=== PATIENT | female | born 1935 | race Caucasian/White ===

== ENCOUNTER 2017-02-04 12:50 | Inpatient (IN) ==
[2017-02-04] MEDS ORDERED: Sulfamethoxazole/Trimeth DS 1 EACH TABLET PO ONE (14:08)
[2017-02-04] MEDS ORDERED: *HR* Morphine 2 MG/ML SYRINGE IVP ONE (15:02)
[2017-02-04] MEDS ORDERED: Ondansetron 4 MG/2 ML VIAL IVP ONE (15:02)
--- NOTE | 2017-02-04 15:08 | Emergency Department Note ---
Disposition Clinical Impression: Abscess of skin or subcutaneous tissue Qualifiers: Site of cutaneous abscess: extremity Site of cutaneous abscess of extremity: lower extremity Laterality: right Qualified Code(s): L02.415 - Cutaneous abscess of right lower limb Disposition: Admitted As Inpatient Condition: Good Time of Disposition: 15:42 Skin/Abscess/FB HPI Chief complaint: ED Skin/Abscess/Foreign Body Stated complaint: Draining wound in groin Time Seen by Provider: 02/04/17 12:57 Source: patient, EMS Limitations: no limitations Nursing Notes Reviewed: Yes Vital Signs Reviewed: Yes HPI Narrative: Right leg pain. Has seen 2 weeks ago for similar. Evaluated that time was determined to be negative evaluation. Recommend follow-up with outpatient surgical provider. Was seen twice as an outpatient. No other issues. He came in today for progressive pain again. Abscess area in the right groin popped and had pus draining from it in transit by EMS. No other complaints or symptoms prior today except for pain in her right leg Pt Subjective Complaint: abscess/boil Onset (ago): week(s) Tetanus Up to Date: yes Location: RLE Severity scale (1-10): 6 Quality: aching Improves with: none Worsens with: none Context: none Associated symptoms: Reports: denies other symptoms Treatments prior to arrival: none Home Medications Medication Instructions Recorded Confirmed Aspirin [Adult Low Dose Aspirin EC] 81 mg PO DAILY 12/29/15 02/04/17 Atorvastatin Calcium [Lipitor] 20 mg PO DAILY 12/29/15 02/04/17 Cholecalciferol (Vitamin D3) 1,000 unit PO DAILY 12/29/15 02/04/17 [Vitamin D3] Doxazosin [Cardura] 4 mg PO DAILY 12/29/15 02/04/17 Loratadine [Claritin] 10 mg PO DAILY 12/29/15 02/04/17 Amlodipine [Norvasc] 5 mg PO DAILY 02/04/17 02/04/17 Ascorbic Acid [Vitamin C] 250 mg PO DAILY 02/04/17 02/04/17 Cyanocobalamin (Vitamin B-12) 1,000 mcg PO DAILY 02/04/17 02/04/17 [Vitamin B12] Ferrous Sulfate [Ferrous Sulfate] 325 mg PO DAILY 02/04/17 02/04/17 Previous Rx's Medication Instructions Recorded Omeprazole [PriLOSEC] 40 mg PO BID #60 capsule 04/13/16 Allergies Allergy/AdvReac Type Severity Reaction Status Date / Time Penicillins Allergy swelling,vo Verified 04/12/16 10:04 miting clopidogrel [From Plavix] AdvReac nervousness Verified 04/12/16 10:04 ,itching All systems ED: reviewed and negative except as stated. Constitutional: Denies: fever, chills Cardiovascular: Denies: chest pain, palpitations, dyspnea on exertion Respiratory: Denies: dyspnea, wheezes Gastrointestinal: Denies: nausea, vomiting, diarrhea Musculoskeletal: Denies: back pain, neck pain Past Medical History - Past Medical History Attestation: Yes The following information was validated with the patient. 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 Absent: tenderness, distention, guarding, rebound, rigidity, Manuel's sign, Rovsing's sign, tenderness at McBurney's Point - Extremities Exam Extremities exam: Present: normal inspection, full ROM - Neurological Exam Neurological exam: Present: alert, oriented X3, CN II-XII intact, normal gait - Psychiatric Psychiatric exam: Present: normal affect, normal mood - Skin Skin exam: Present: warm, dry, intact, normal color Course Course Narrative: Patient seen and examined at the time of arrival. See history of present illness. Patient presented here today for evaluation of right hip pain. She been seen 2 weeks ago for similar. Evaluated Mr. Webb is a to outpatient evaluations by her operative physician during that time. Vital signs are stable in presentation she is afebrile. Patient was transported by EMS for evaluation hip pain. Patient had area on the right groin start to CPAP plus in- transit. Patient has what appears to be an abscess formation inguinal area. Physical exam is otherwise benign. Pulses are intact in the distal extremity capillary refill is normal. Patient has normal sensation. There is no red signs of cellulitis or warmth at this point. Patient bedside ultrasound performed by myself showing large fluid accumulation in the inguinal and underneath the surgical site line of the right thigh. The femoral popliteal bypass appears to be intact with good patency to the vessel itself at this time. Labs were ordered at this point CBC and chemistry along with wound culture. Consultation was placed to the operative physician Dr. Yancey. Disposition pending his evaluation treatment course. - Reevaluation(s) Reevaluation #1: Patient was discussed with Dr. Barker. We reviewed and discussed the presentation symptoms medical history and evaluations. He advised to admit the patient to his service and order vancomycin. Single dose of IV pain medication nausea medication fluids to be given on here as well as first dose of IV vancomycin. Admission process to be completed at this point. Patient is stable resting comfortably in the bed. Informed patient of the projected plan at this time she is comfortable with this treatment course. Patient has no other concerns or complaints at this time we will continue monitoring in the emergency room until admission is completed. No acute signs of vascular compromise the right lower extremity. Area and presentation seem to be consistent with postsurgical related abscess formation Time: 15:42 Vital Signs Temperature 98 F 02/04/17 12:55 Pulse Rate 100 02/04/17 12:55 Respiratory Rate 20 02/04/17 12:55 Blood Pressure 137/59 02/04/17 12:55 O2 Sat by Pulse Oximetry 98 02/04/17 12:55 Temperature 98.2 F 02/04/17 18:39 Pulse Rate 89 02/04/17 18:39 Respiratory Rate 18 02/04/17 18:39 Blood Pressure 127/67 02/04/17 18:39 O2 Sat by Pulse Oximetry 93 02/04/17 18:39 Oxygen Delivery Oxygen Delivery Room Air Skin/Abscess/Foreign Body - MDM Narrative Medical decision making narrative: Right inguinal abscess, postsurgical complication - Medical Records Medical records reviewed: Yes I reviewed the patient's medical records. - Lab Data Lab results reviewed: Yes I reviewed the patient's lab results. Result diagrams: 02/04/17 14:56 02/04/17 14:56 Lab Results 02/04/17 02/04/17 Range/Units 14:56 14:56 WBC 14.9 H (4.3-11.1) K/mcL RBC 4.03 (3.82-4.97) M/mcL Hgb 9.4 L (11.5-15.4) g/dL Hct 30.9 L (35.3-44.9) % MCV 76.7 L (83.0-100.0) fL MCH 23.3 L (28.0-33.3) pg MCHC 30.4 L (31.6-35.5) g/dL RDW 21.0 H (11.5-14.5) % Plt Count 320 (140-400) K/mcL MPV 11.1 (9.4-12.4) fL Seg Neutrophils % 92.0 % Lymphocytes % 6.0 % Monocytes % 2.0 % Neutrophils # 13.7 H (1.6-8.9) K/mcL Lymphocytes # 0.9 (0.6-4.6) K/mcL Monocytes # 0.3 (0.0-1.3) K/mcL Platelet Estimate Normal (Normal) Sodium 137 (136-145) mEq/L Potassium 2.9 L (3.5-4.5) mEq/L Chloride 103 (98-109) mEq/L Carbon Dioxide 26 (19-29) mEq/L BUN 14 (7-20) mg/dL Creatinine 0.69 (0.57-1.11) mg/dL Est GFR ( Amer) > 60 (> 60) Est GFR (Non-Af Amer) > 60 (> 60) BUN/Creatinine Ratio 20 (6-26) Glucose 146 H (70-99) mg/dL Calculated Osmolality 287 (280-300) Calcium 8.1 L (8.6-10.8) mg/dL Attestation Statement - Attestation Attestation: I examined this patient and my medical decision-making was reviewed with the IMPROVEMENT COORDINATOR/PA/Advanced Practice Nurse/Resident Physician. I agree with the documented findings, disposition and treatment plan as described except to the extent set forth below. 81-year-old female presents ED because of pain of her right groin. She has had symptoms for the past several weeks that worsened over the past couple days. Today she had abrupt onset of drainage from the right leg. No associated fever. No flank or back pain. She underwent revascularization procedure per Dr. Barker and December of last year. She just had CT of abdomen with run off the showed adequate flow to the lower leg. Obese female who is awake alert and interactive. No apparent distress. Abdomen soft nondistended nontender. Chest clear to auscultation bilaterally. Flanks nontender. Right lower extremity was weak and pulse but good perfusion of the toes. She has active purulent drainage from the right groin. No overlying erythema. Bedside ultrasound was used to evaluate the fluid and this seemed to extend down to the medial thigh along the track of her previous vascular procedure. The drainage was sent for culture. She will IV vancomycin. She will be admitted to Dr. Barker's service for IV antibiotics and consideration of surgical exploration.
[2017-02-04 15:09] LABS: Hematocrit 30.9 % (35.3-44.9); Hemoglobin 9.4 g/dL (11.5-15.4); Mean Corpuscular HGB Conc 30.4 g/dL (31.6-35.5); Mean Corpuscular Hemoglobin 23.3 pg (28.0-33.3); Mean Corpuscular Volume 76.7 fL (83.0-100.0); Mean Platelet Volume 11.1 fL (9.4-12.4); Platelet Count 320 K/mcL (140-400); Red Blood Count 4.03 M/mcL (3.82-4.97)
[2017-02-04 15:23] LABS: BUN/Creatinine Ratio 20 (6-26); Blood Urea Nitrogen 14 mg/dL (7-20); Calcium 8.1 mg/dL (8.6-10.8); Carbon Dioxide 26 mEq/L (19-29); Chloride 103 mEq/L (98-109); Glucose 146 mg/dL (70-99); Osmolality,Calculated 287 (280-300); Potassium 2.9 mEq/L (3.5-4.5); Sodium 137 mEq/L (136-145); eGFR For African Americans > 60 (> 60); eGFR For Non-African Americans > 60 (> 60)
[2017-02-04 15:42] LABS: Lymphocytes # 0.9 K/mcL (0.6-4.6); Monocytes # 0.3 K/mcL (0.0-1.3); Neutrophils # 13.7 K/mcL (1.6-8.9)
[2017-02-04 15:43] LABS: Platelet Estimate Normal (Normal)
[2017-02-04] MEDS ORDERED: Vancomycin 1,250 MG in D5% in Water 250 ML IVPB ONE (16:00)
[2017-02-04] MEDS ORDERED: Ondansetron 4 MG/2 ML VIAL IVP PRN (16:30)
[2017-02-04] MEDS ORDERED: Naloxone 0.4 MG/ML INJ IVP PRN (16:30)
[2017-02-04] MEDS ORDERED: *HR* HYDROmorphone (PF) 1 MG/ML SYRINGE IVP PRN (16:37)
[2017-02-04] MEDS ORDERED: *HR* OxyCODONE/APAP 5/325 TABLET PO PRN (16:38)
[2017-02-04] MEDS ORDERED: Acetaminophen 325 MG TABLET PO PRN (16:38)
--- NOTE | 2017-02-04 16:50 | Vascular/Endovascular H&P ---
<Aparna Alvarez - Last Filed: 02/04/17 16:44> Date of Encounter: 02/04/17 Time of Encounter: 16:00 Assessment and Plan (1) Abscess of skin or subcutaneous tissue Current Visit: Yes Status: Acute IV antibiotics- Vancomycin Wound care- iodoform packing CT scan of RLE Supportive care/pain control Cardiac diet, NPO after midnight Resume home meds Dr. Barker to evaluate and review CT to determine if surgical intervention is warranted Qualifiers: Site of cutaneous abscess: extremity Site of cutaneous abscess of extremity : lower extremity Laterality: right Qualified Code(s): L02.415 - Cutaneous abscess of right lower limb (2) Peripheral vascular disease Current Visit: No Status: Chronic (3) HTN (hypertension) Current Visit: No Status: Chronic Resume home medication regiment Will monitor and adjust as necessary Qualifiers: Hypertension type: essential hypertension Qualified Code(s): I10 - Essential (primary) hypertension (4) GERD (gastroesophageal reflux disease) Current Visit: Yes Status: Chronic PPI therapy daily Qualifiers: Esophagitis presence: esophagitis presence not specified Qualified Code(s) : K21.9 - Gastro-esophageal reflux disease without esophagitis (5) DVT prophylaxis Current Visit: Yes Status: Acute heparin 5,000 units SQ twice daily for DVT prophylaxis History of Present Illness Chief complaint: Right groin pain HPI: Ms. Worley is a 81 year old female with a past medical history significant for carotid stenosis, HTN, Hyperlipidemia, GERD, PAD, osteoporosis, osteoarthritis, seasonal allergies. She presented to the ED today with a 3 weak history of right groin pain and swelling. She states that she is 1 year out from a right fem-pop bypass with Dr. Barker (12/29/15). She states that she had done well up until 3 weeks ago when she developed sudden onset of right groin pain and swelling. She states that the symptoms have progressively worsened and that she did see Dr. Barker on 01/25/17 for a routine follow-up. Her 1 year follow- up imaging was reviewed and no acute intervention was warranted. The patient reports that when she got up this morning, the right groin opened up and she drained copious amounts of purulent drainage without odor. She has continued to drain a large amount of purulent drainage while in the ED. She states that her pain is much better since decompression. She denies any fevers or chills. Denies any difficulty with ambulation. She does admit to loss of appetite. Denies any shortness of breath or chest pains. Past Med Surg Social Fam HX - Past Medical History Source: patient, old records reviewed Medical history: cancer, GERD, hyperlipidemia, hypertension, osteoporosis, peripheral artery disease, other (seasonal allergies, carotid stenosis, PAD, osteoarthritis) Psychiatric history: no psych history - Past Surgical History Surgical History: carotid endarterectomy (right 2009), cholecystectomy, other ( EGD), LE vascular intervention (RLE fem-pop bypass in 2002 and 2015) - Social History Smoking Status: Former smoker Smokeless Tobacco Status: No Alcohol use: none Drug use: none Current living situation: Home - Independent Activity Level: Independent ambulation - Family History Mother Living Status: Hx Family Cardiac Disorders: Yes Hx Family Respiratory Disorders: No Hx Family Cancer: Yes (Colon and lung) Hx Family GI Disorders: No Hx Family Endocrine Disorder: Yes (Brother and sister) Hx Family Neuromuscular Disorders: No Hx Family Neurologic Disorders: No Hx Family HEENT Disorders: No Hx Family Autoimmune Disorders: No Daughter Hx Family Cancer: Yes (daughter diagnosed with colon cancer at 53.) Medications and Allergies Aspirin [Adult Low Dose Aspirin EC] 81 mg PO DAILY 12/29/15 [History] Atorvastatin Calcium [Lipitor] 20 mg PO DAILY 12/29/15 [History] Cholecalciferol (Vitamin D3) [Vitamin D3] 1,000 unit PO DAILY 12/29/15 [History] Doxazosin [Cardura] 4 mg PO DAILY 12/29/15 [History] Loratadine [Claritin] 10 mg PO DAILY 12/29/15 [History] Omeprazole [PriLOSEC] 40 mg PO BID #60 capsule 04/13/16 [Rx] Amlodipine [Norvasc] 5 mg PO DAILY 02/04/17 [History] Ascorbic Acid [Vitamin C] 250 mg PO DAILY 02/04/17 [History] Cyanocobalamin (Vitamin B-12) [Vitamin B12] 1,000 mcg PO DAILY 02/04/17 [History ] Ferrous Sulfate [Ferrous Sulfate] 325 mg PO DAILY 02/04/17 [History] Allergies Penicillins Allergy (Verified 04/12/16 10:04) swelling,vomiting clopidogrel [From Plavix] Adverse Reaction (Verified 04/12/16 10:04) nervousness,itching All Systems Review: A 10-system review of systems was performed and is negative for pertinent findings except as documented above in the HPI. Exam General: Present: Conversant, No Apparent Distress, Well developed, Well nourished HEENT: Present: Atraumatic, Normocephaly, Trachea midline, Other (poor dentition ) Cardiac: Present: Reg Rate and Rhythm, Normal S1 and S2 Lungs: Present: Normal Breath Sounds, No Wheeze, Rales, Rhonchi Neuro: Present: Alert and responsive, No focal deficits noted Abdomen: Present: Soft, Non-tender Vascular: Present: Normal capillary refill, Pulse, normal, Other (right groin with open wound noted with copious amounts of purulent drainage without odor, no surrounding erythema or induration noted) Skin: Present: No rashes noted on visualized skin Results 02/04/17 14:56 02/04/17 14:56 - Imaging / Other Tests Other Results: CT ordered - Attending Attestation I examined this patient and my medical decision-making was reviewed with the PRINCIPAL EXAMINER/PA/Advanced Practice Nurse/Resident Physician. I agree with the documented findings, disposition and treatment plan as described except to the extent set forth below. <MjBrandon T - Last Filed: 02/05/17 06:49> Date of Encounter: 02/05/17 History of Present Illness HPI: Ms. Worley is a 81 year old female All Systems Review: A 10-system review of systems was performed and is negative for pertinent findings except as documented above in the HPI. Exam Vital Signs, Last 4 Hours Temp Pulse Resp BP Pulse Ox 02/05/17 03:54 97.6 F 86 20 148/71 94 Results 02/05/17 05:32 02/05/17 05:32 Lab Results, Last 24 hours 02/05/17 02/05/17 05:32 05:32 WBC 7.7 Hgb 8.8 L Hct 29.5 L Plt Count 304 Sodium 139 Potassium 3.0 L Chloride 105 Carbon Dioxide 26 BUN 12 Creatinine 0.69 Glucose 120 H Calcium 7.9 L - Attending Attestation The patient is one alta out from femoral endarterectomy, bovine patch angioplasty and right femoral-tibial in-situ bypass. Now with and abcess of the right groin not detected on follow-up 9 days ago in the office. Recent CTA failed to demonstrate abcess. Plan Vancomycin and clinical follow-up. Graft appears patent Brandon Barker MD FACS
[2017-02-04] MEDS: 0.9 % Sodium Chloride 1,000 ML IVC SCH (18:40)
[2017-02-04] MEDS: *HR* Heparin 5,000 UNIT/ML VIAL SQ SCH (18:41)
[2017-02-05] MEDS: Vancomycin 1,250 MG in D5% in Water 250 ML IVPB SCH ×2 (05:40→17:48)
[2017-02-05] MEDS: *HR* Heparin 5,000 UNIT/ML VIAL SQ SCH ×2 (05:41→17:48)
[2017-02-05 06:14] LABS: Basophils # 0.1 K/mcL (0.0-0.2); Basophils % 0.7 %; Eosinophils # 0.2 K/mcL (0.0-0.6); Eosinophils % 2.9 %; Hematocrit 29.5 % (35.3-44.9); Hemoglobin 8.8 g/dL (11.5-15.4); Immature Granulocytes % 1.3 % (0-4); Lymphocytes # 0.8 K/mcL (0.6-4.6); Lymphocytes % 9.8 %; Mean Corpuscular HGB Conc 29.8 g/dL (31.6-35.5); Mean Corpuscular Hemoglobin 23.1 pg (28.0-33.3); Mean Corpuscular Volume 77.4 fL (83.0-100.0); Mean Platelet Volume 11.1 fL (9.4-12.4); Monocytes # 0.7 K/mcL (0.0-1.3); Monocytes % 8.7 %; Neutrophils # 5.9 K/mcL (1.6-8.9); Platelet Count 304 K/mcL (140-400); Red Blood Count 3.81 M/mcL (3.82-4.97); Red Cell Distribution Width 21.2 % (11.5-14.5); Segmented Neutrophils % 76.6 %
[2017-02-05 06:31] LABS: BUN/Creatinine Ratio 17 (6-26); Blood Urea Nitrogen 12 mg/dL (7-20); Calcium 7.9 mg/dL (8.6-10.8); Carbon Dioxide 26 mEq/L (19-29); Chloride 105 mEq/L (98-109); Glucose 120 mg/dL (70-99); Osmolality,Calculated 289 (280-300); Sodium 139 mEq/L (136-145); eGFR For African Americans > 60 (> 60); eGFR For Non-African Americans > 60 (> 60)
[2017-02-05] MEDS ORDERED: amLODIPine 5 MG TABLET PO SCH (09:00)
[2017-02-05] MEDS ORDERED: Aspirin 81 MG TAB.CHEW PO SCH (09:00)
[2017-02-05] MEDS ORDERED: Potassium Chloride 40 MEQ, Lidocaine 1% 2 ML in D5% in Water 500 ML IVPB ONE (10:40)
[2017-02-05] MEDS: 0.9 % Sodium Chloride 1,000 ML IVC SCH (11:50)
--- NOTE | 2017-02-05 18:01 | Anesthesia Evaluation PreOp ---
Date of Encounter: 02/05/17 Time of Encounter: 17:59 - Past History Planned Operation: Remove Infected Right Fem-Pop Graft Cardiac History: HTN, Hyperlipidemia, Other (PVD) Pulmonary History: Former smoker (quit 40 years ago), COPD WHITE SPOOLER History: Denies Any Significant HX Other Medical History: Diabetes Type II, GERD Anesthesia History: No Prior Anesthetic Complications, Past Anesthesia (CEA) Alcohol Use: none Drug use: none Medications and Allergies Aspirin [Adult Low Dose Aspirin EC] 81 mg PO DAILY 12/29/15 [History] Atorvastatin Calcium [Lipitor] 20 mg PO DAILY 12/29/15 [History] Cholecalciferol (Vitamin D3) [Vitamin D3] 1,000 unit PO DAILY 12/29/15 [History] Doxazosin [Cardura] 4 mg PO DAILY 12/29/15 [History] Loratadine [Claritin] 10 mg PO DAILY 12/29/15 [History] Omeprazole [PriLOSEC] 40 mg PO BID #60 capsule 04/13/16 [Rx] Amlodipine [Norvasc] 5 mg PO DAILY 02/04/17 [History] Ascorbic Acid [Vitamin C] 250 mg PO DAILY 02/04/17 [History] Cyanocobalamin (Vitamin B-12) [Vitamin B12] 1,000 mcg PO DAILY 02/04/17 [History ] Ferrous Sulfate [Ferrous Sulfate] 325 mg PO DAILY 02/04/17 [History] Allergies Penicillins Allergy (Verified 04/12/16 10:04) swelling,vomiting clopidogrel [From Plavix] Adverse Reaction (Verified 04/12/16 10:04) nervousness,itching - Meds/Allergy Pre-op Review Medications Reviewed: Yes Allergies Reviewed: Yes Beta Blockers on Current Med List: No Anesthesia Results - Labs 02/05/17 05:32 02/05/17 05:32 - Imaging EKG: report reviewed (04/12/2016 ST, marked LAD, LBBB) Additional studies: 12/06/2015 Stress EF 58% perfusion imaging was negative for ischemia or infarct Anesthesia Exam Vital Signs/O2 Sat/Glucose, Most Recent Temp Pulse Resp BP Pulse Ox 97.9 F 80 18 138/72 97 02/05/17 11:45 02/05/17 11:45 02/05/17 11:45 02/05/17 11:45 02/05/17 11:45 Blood Glucose* 104 Height: 5'/1.52 Weight: 203 lbs/92.261 kg NPO (# of Hours): 8 Pain Scale: 0 Pain Scale Used: Numeric (1 - 10) - HEENT Pupil (Motor): EOMI Mallampati: II Teeth: Poor dentition (3 decayed lower front teeth) Oral Opening: Greater than 3 - WHITE SPOOLER LOC: Oriented WHITE SPOOLER Motor: Normal RUE, Normal LUE, Normal RLE, Normal LLE, Normal Face WHITE SPOOLER Sensory: Normal: RUE, LUE, RLE, LLE, Face - Cardiac Rhythm: Regular Murmur: None - Pulmonary Breath Sounds: bilateral Clear Respiratory Effort: Symmetrical Anesthesia Assess/Plan ASA Score: 3 Modified [place] Scale for Level of Consciousness: Cooperative, oriented, and tranquil Anesthetic Plan: General Monitoring Plan: Standard Monitors Recovery Plan: PACU
[2017-02-05] MEDS ORDERED: *HR* FentaNYL (PF) 100 MCG/2 ML VIAL ONE (18:35)
[2017-02-05] MEDS ORDERED: *HR* Propofol 200 MG/20 ML VIAL IVP ONE (18:35)
[2017-02-05] MEDS ORDERED: *HR* Rocuronium Bromide 50 MG/5 ML VIAL ONE (18:37)
[2017-02-05] MEDS ORDERED: Lidocaine -MPF 2% 2 ML VIAL ONE (18:37)
[2017-02-05] MEDS ORDERED: Lidocaine -MPF 4% 5 ML AMPUL ONE (18:37)
[2017-02-05] MEDS ORDERED: Heparin 1,000 UNITS/500 mL NS 500 ML ONE (18:56)
[2017-02-05] MEDS ORDERED: *HR* Succinylcholine 200 MG/10 ML VIAL IVP ONE (19:10)
[2017-02-05] MEDS ORDERED: *HR* Phenylephrine 10 MG/ML VIAL ONE (19:27)
[2017-02-05] MEDS ORDERED: Ondansetron 4 MG/2 ML VIAL ONE (19:51)
[2017-02-05] MEDS ORDERED: Dexamethasone 4 MG/ML VIAL ONE (19:51)
--- NOTE | 2017-02-05 20:06 | Operative Note ---
Date of procedure: 02/05/17 Pre-op diagnosis: PTFE graft infection (defunctionalized) Post-op diagnosis: same Procedure: #1 incision and drainage of popliteal abscess #2 removal of PTFE femoral- popliteal bypass graft Anesthesia: SILVANO Surgeon: Brandon Barker Estimated blood loss (cc): 25 Specimen: Cultures and PTFE graft (gross only) Condition: stable Disposition: PACU Procedure in Detail: After informed consent the patient was taken to the major operating suite placed in the supine position given adequate general endotracheal anesthesia. The right leg was circumferentially prepped and draped in sterile fashion utilizing Betadine solution and draping techniques. Timeout was taken patient was identified the lateralizing bushra was identified. I opened the previous. Geniculate incision and angled my dissection anteriorly to avoid the femoral tibial bypass graft which is patent. I dissected down the level popliteal fossa and entered a large abscess cavity. Abscess cavity was completely drained. I had assumed that the PTFE graft was floating and it was with no connection to soft tissue. I was also surprised to find that the anastomosis was also deteriorated and node dissection was necessary on the occluded popliteal artery. No stitches were necessary on the occluded popliteal artery. The entire PTFE segment was removed. I then obtained to cultures 1 for anaerobic and 1 for aerobic bacteria. I then irrigated with copious amounts of antibiotic containing solution. The thigh tract and popliteal abscess was packed with iodoform. I then removed the iodoform from the groin wound. This was irrigated with antibiotic solution and repacked with iodoform. Patient tolerated the procedure very well is transferred to recovery in stable condition
[2017-02-05] MEDS ORDERED: Albuterol 2.5 MG/3 ML NEBULIZER ONE (20:20)
[2017-02-05] MEDS ORDERED: Albuterol 2.5 MG/3 ML NEBULIZER IH ONE (20:20)
--- NOTE | 2017-02-05 20:34 | Anesthesia Evaluation Post Op ---
Date of Encounter: 02/05/17 Time of Encounter: 20:34 - Vital Signs Vital Signs: Vital Signs/O2 Sat, Most Current Temp Pulse Resp BP Pulse Ox 97.7 F 96 20 157/65 100 02/05/17 20:05 02/05/17 20:25 02/05/17 20:25 02/05/17 20:25 02/05/17 20:25 - Lungs Lungs: Clear Ascult./Percussion - Airway Airway: Non-obstructed - Cardiovascular Regular Rate - Mental Status Mental Status: Alert & Oriented, Answers Appropriately - Pain Pain Scale: 0 Pain Scale used: Numeric (1 - 10) - Nausea Vomiting Nausea Vomiting: Not Present - Hydration Hydration: NPO, Has not voided - Discharge PostOp Status: Transfer Patient to floor
[2017-02-05] MEDS ORDERED: *HR* OxyCODONE/APAP 5/325 TABLET PO PRN (21:20)
[2017-02-05] MEDS ORDERED: 0.9 % Sodium Chloride 1,000 ML IVC SCH (21:20)
[2017-02-05] MEDS ORDERED: *HR* HYDROmorphone (PF) 1 MG/ML SYRINGE IVP PRN (21:20)
[2017-02-05] MEDS ORDERED: Naloxone 0.4 MG/ML INJ IVP PRN (21:20)
[2017-02-05] MEDS ORDERED: Acetaminophen 325 MG TABLET PO PRN (21:20)
[2017-02-05] MEDS ORDERED: Ondansetron 4 MG/2 ML VIAL IVP PRN (21:20)
[2017-02-06] MEDS: *HR* Heparin 5,000 UNIT/ML VIAL SQ SCH ×2 (05:29→17:03)
[2017-02-06] MEDS: Vancomycin 1,250 MG in D5% in Water 250 ML IVPB SCH ×2 (05:29→17:03)
[2017-02-06 06:23] LABS: BUN/Creatinine Ratio 14 (6-26); Blood Urea Nitrogen 11 mg/dL (7-20); Calcium 7.9 mg/dL (8.6-10.8); Carbon Dioxide 25 mEq/L (19-29); Chloride 105 mEq/L (98-109); Glucose 217 mg/dL (70-99); Osmolality,Calculated 292 (280-300); Sodium 138 mEq/L (136-145); eGFR For African Americans > 60 (> 60); eGFR For Non-African Americans > 60 (> 60)
[2017-02-06] MEDS: amLODIPine 5 MG TABLET PO SCH (10:16)
[2017-02-06] MEDS: Aspirin 81 MG TAB.CHEW PO SCH (10:16)
--- NOTE | 2017-02-06 13:20 | Vascular/[facility] Progress Note ---
Date of Encounter: 02/06/17 Time of Encounter: 13:00 - Assessment and plan (1) Abscess of skin or subcutaneous tissue Current Visit: Yes Status: Acute POD #1 incision and drainage of popliteal abscess and removal of PTFE femoral- popliteal bypass graft with Dr. Barker IV antibiotics- Vancomycin Wound care- iodoform packing daily Supportive care/pain control Cardiac diet Continue home meds Increase activity as tolerated Discussed discharge planning in need of home health care when ready for discharge (daily dressing changes) The patient is seen and evaluated on morning rounds. Iodoform packing as directed. Continue Eric Barker MD FACS Qualifiers: Site of cutaneous abscess: extremity Site of cutaneous abscess of extremity : lower extremity Laterality: right Qualified Code(s): L02.415 - Cutaneous abscess of right lower limb (2) Peripheral vascular disease Current Visit: No Status: Chronic (3) HTN (hypertension) Current Visit: No Status: Chronic Resume home medication regimen add Metoprolol prn Will monitor and adjust as necessary Qualifiers: Hypertension type: essential hypertension Qualified Code(s): I10 - Essential (primary) hypertension (4) GERD (gastroesophageal reflux disease) Current Visit: Yes Status: Chronic PPI therapy daily Qualifiers: Esophagitis presence: esophagitis presence not specified Qualified Code(s) : K21.9 - Gastro-esophageal reflux disease without esophagitis (5) DVT prophylaxis Current Visit: Yes Status: Acute heparin 5,000 units SQ twice daily for DVT prophylaxis - Subjective Procedure(s) Performed: #1 incision and drainage of popliteal abscess #2 removal of PTFE femoral- popliteal bypass graft Interval history: 81-year-old female who is status post #1 incision and drainage of popliteal abscess #2 removal of PTFE femoral-popliteal bypass graft with Dr. Barker. She states that she feels great today. She is tolerating a diet without nausea or vomiting. Her appetite has improved. She denies any fevers or chills. Vital Signs, Last 4 Hours Temp Pulse Resp BP Pulse Ox 02/06/17 10:41 98.2 F 90 17 162/76 96 - Physical Examination General: Present: Conversant, No Apparent Distress, Well developed, Well nourished HEENT: Present: Atraumatic, Normocephaly, Trachea midline, Pupils equal Cardiac: Present: Reg Rate and Rhythm, Normal S1 and S2 Lungs: Present: Normal Breath Sounds, No Wheeze, Rales, Rhonchi Neuro: Present: Alert and responsive, No focal deficits noted, Cranial nerves grossly intact Vascular: Present: Normal capillary refill, Pulse, normal, Surgical incisions ( Moderate amount of serosanguineous drainage noted from right groin and medial thigh) Abdomen: Present: Soft, Non-tender Skin: Present: No rashes noted on visualized skin Results 02/05/17 05:32 02/06/17 05:21 Lab Results, Last 24 hours 02/06/17 05:21 Sodium 138 Potassium 4.0 D Chloride 105 Carbon Dioxide 25 BUN 11 Creatinine 0.77 Glucose 217 H Calcium 7.9 L Consult Discharge Plan - Plan Referrals: Tracy Blackwell MD [Primary Care Provider] -
[2017-02-06] MEDS: *HR* Metoprolol 5 MG/5 ML VIAL IVP PRN (14:42)
[2017-02-07] MEDS: *HR* Heparin 5,000 UNIT/ML VIAL SQ SCH ×2 (06:28→17:49)
[2017-02-07] MEDS: Aspirin 81 MG TAB.CHEW PO SCH (08:31)
[2017-02-07] MEDS: amLODIPine 5 MG TABLET PO SCH (08:31)
--- NOTE | 2017-02-07 13:57 | Vascular/Endovas Progress Note ---
Date of Encounter: 02/07/17 Time of Encounter: 13:30 - Assessment and plan (1) Abscess of skin or subcutaneous tissue Current Visit: Yes Status: Acute POD #1 incision and drainage of popliteal abscess and removal of PTFE femoral- popliteal bypass graft with Dr. Barker IV antibiotics- Vancomycin Wound care- iodoform packing daily Supportive care/pain control Cardiac diet Continue home meds Increase activity as tolerated Discussed discharge planning in need of home health care when ready for discharge (daily dressing changes) The patient is seen and evaluated on morning rounds. Iodoform packing as directed. Continue Eric Barker MD FACS 02/07/2017. The patient is doing well on postoperative day 2. We will continue vancomycin and wound packing until the drainage subsides. Overall she feels much better and has very little pain in her leg. Qualifiers: Site of cutaneous abscess: extremity Site of cutaneous abscess of extremity : lower extremity Laterality: right Qualified Code(s): L02.415 - Cutaneous abscess of right lower limb (2) Peripheral vascular disease Current Visit: No Status: Chronic (3) HTN (hypertension) Current Visit: No Status: Chronic Resume home medication regimen add Metoprolol prn Will monitor and adjust as necessary Qualifiers: Hypertension type: essential hypertension Qualified Code(s): I10 - Essential (primary) hypertension (4) GERD (gastroesophageal reflux disease) Current Visit: Yes Status: Chronic PPI therapy daily Qualifiers: Esophagitis presence: esophagitis presence not specified Qualified Code(s) : K21.9 - Gastro-esophageal reflux disease without esophagitis (5) DVT prophylaxis Current Visit: Yes Status: Acute heparin 5,000 units SQ twice daily for DVT prophylaxis - Subjective Interval history: 81-year-old female who is status post #1 incision and drainage of popliteal abscess #2 removal of PTFE femoral-popliteal bypass graft with Dr. Barker. She states that she feels great today. She is tolerating a diet without nausea or vomiting. Her appetite has improved. She denies any fevers or chills. 02/07/2017. The patient is postoperative day 2 from incision and drainage of popliteal abscess as well as removal of PTFE infected graft. The graft was first placed 14 years ago. She has a functioning femoral tibial in situ bypass graft. Today she is afebrile and is having much less leg pain. She continues to have drainage particular from the proximal incision. We will continue to treat her with vancomycin and wound packing until stable and then transitioned to negative pressure wound therapy. Continue vancomycin Vital Signs, Last 4 Hours Temp Pulse Resp BP Pulse Ox 02/07/17 10:26 98.0 F 84 17 150/75 95 - Physical Examination General: Present: Well developed, Well nourished Cardiac: Present: Reg Rate and Rhythm, No Murmur Lungs: Present: Normal Breath Sounds, No Wheeze, Rales, Rhonchi Neuro: Present: Alert and responsive, No focal deficits noted Vascular: Present: Pulse, normal (Right lower extremity and pulse is present by Doppler) Results 02/05/17 05:32 02/06/17 05:21 Consult Discharge Plan - Plan Referrals: Tracy Blackwell MD [Primary Care Provider] -
[2017-02-07] MEDS ORDERED: Aminoglycoside Consult 1 EACH MC ONE (14:14)
[2017-02-07] MEDS ORDERED: Vancomycin 1,250 MG in D5% in Water 250 ML IVPB SCH ×2 (15:00→17:00)
[2017-02-07] MEDS ORDERED: WATER IVPB SCH (18:00)
[2017-02-07] MEDS ORDERED: NAFCILLIN IVPB SCH (18:00)
[2017-02-07] MEDS ORDERED: D5 IVPB SCH (18:00)
[2017-02-08] MEDS: *HR* Heparin 5,000 UNIT/ML VIAL SQ SCH (05:48)
[2017-02-08] MEDS: Aspirin 81 MG TAB.CHEW PO SCH (08:21)
[2017-02-08] MEDS: amLODIPine 5 MG TABLET PO SCH (08:21)
--- NOTE | 2017-02-08 11:46 | Discharge Summary ---
<Aparna Alvarez - Last Filed: 02/08/17 11:44> Date of Encounter: 02/08/17 Time of Encounter: 11:30 - Discharge Diagnosis (1) Abscess of skin or subcutaneous tissue Priority: Primary Status: Acute Qualifiers: Site of cutaneous abscess: extremity Site of cutaneous abscess of extremity : lower extremity Laterality: right Qualified Code(s): L02.415 - Cutaneous abscess of right lower limb (2) Peripheral vascular disease Priority: Secondary Status: Chronic (3) HTN (hypertension) Priority: Secondary Status: Chronic Qualifiers: Hypertension type: essential hypertension Qualified Code(s): I10 - Essential (primary) hypertension (4) GERD (gastroesophageal reflux disease) Priority: Secondary Status: Chronic Qualifiers: Esophagitis presence: esophagitis presence not specified Qualified Code(s) : K21.9 - Gastro-esophageal reflux disease without esophagitis - Discharge Medications Prescriptions: OxyCODONE/APAP 5/325 [Percocet 5/325 MG] 1 each PO Q6HR PRN #20 tablet PRN Reason: Pain Sulfamethoxazole/Trimeth DS [Bactrim DS] 1 each PO BID #28 tablet Home Medications: Aspirin [Adult Low Dose Aspirin EC] 81 mg PO DAILY 12/29/15 [History] Atorvastatin Calcium [Lipitor] 20 mg PO DAILY 12/29/15 [History] Cholecalciferol (Vitamin D3) [Vitamin D3] 1,000 unit PO DAILY 12/29/15 [History] Doxazosin [Cardura] 4 mg PO DAILY 12/29/15 [History] Loratadine [Claritin] 10 mg PO DAILY 12/29/15 [History] Omeprazole [PriLOSEC] 40 mg PO BID #60 capsule 04/13/16 [Rx] Amlodipine [Norvasc] 5 mg PO DAILY 02/04/17 [History] Ascorbic Acid [Vitamin C] 250 mg PO DAILY 02/04/17 [History] Cyanocobalamin (Vitamin B-12) [Vitamin B12] 1,000 mcg PO DAILY 02/04/17 [History ] Ferrous Sulfate 325 mg PO DAILY 02/04/17 [History] OxyCODONE/APAP 5/325 [Percocet 5/325 MG] 1 each PO Q6HR PRN #20 tablet 02/08/17 [Rx] Sulfamethoxazole/Trimeth DS [Bactrim DS] 1 each PO BID #28 tablet 02/08/17 [Rx] Allergies/Adverse Reactions: Allergies Penicillins Allergy (Verified 04/12/16 10:04) swelling,vomiting clopidogrel [From Plavix] Adverse Reaction (Verified 04/12/16 10:04) nervousness,itching General Surgery Exam Initial Vital Signs Temp Pulse Resp BP Pulse Ox 98 F 100 20 137/59 98 02/04/17 12:55 02/04/17 12:55 02/04/17 12:55 02/04/17 12:55 02/04/17 12:55 - General physical appearance well developed, well nourished, no distress, no pain - Eyes normal ocular movement - ENT normal mucosa, atraumatic, normocephalic - Neck trachea midline - Respiratory normal respiratory effort, clear to auscultation - Cardiovascular Cardiovascular exam: Present: RRR - Abdomen Abdomen general surgery: Present: bowel sounds present, soft, non tender - Incision Incision: Present: draining, serous (moderate amount of serous drainage from right groin and right medial knee), open (no surrounding erythema or induration) - Integumentary Integumentary general surgery: Present: warm and dry - Neurologic Present: CN 2-12 grossly intact - Musculoskeletal Present: normal gait, normal posture - Psychiatric Psychiatric general surgery: Present: A&Ox3, appropriate, oriented to person, oriented to place, oriented to time, speech is normal, memory intact Date of admission: 02/05/17 13:45 Primary care physician: Tracy Blackwell MD Discharging [facility] Anticipated date of discharge: 02/08/17 - Patient Status Disposition: Home Health Service Condition: Good Functional capacity at discharge: independent ambulation Overall status at discharge: patient is progressing back to baseline - Discharge Instructions Follow Up With: Brandon Barker MD [Partnered Physician] - 02/18/17 9:45 am (surgery follow-up in outpatient wound care center- [phone]) Tracy Blackwell MD [Primary Care Provider] - (1-2 weeks hospital follow-up) Additional Instructions: Surgical instructions: #1 May shower, no tub bath until released per surgeon #2 Wound care- wash incisions with soap and water in the shower, pack open areas with 1 inch iodoform packing, cover with 4X4 gauze and ABD pad and tape to secure daily #3 No driving until off narcotics for 24 hours and able to safely react in the car #4 May climb stairs - Diet and Activity Activity: increase activity as tolerated Diet: advance to your usual diet - Hospital Course Hospital course: Ms. Worley is a 81 year old female presented to the hospital with a PTFE graft infection of the RLE. She is s/p #1 incision and drainage of popliteal abscess #2 removal of PTFE femoral-popliteal bypass graft with Dr. Barker. She has been treated with IV antibiotics and treated for MSSA which is pansensitive. We have completed daily wound care. She is doing well and is currently pain free. Vitals are stable and she is afebrile. Her WBC count is normal. We will begin discharge planning and plan for home health care to change dressing daily. F/U in outpatient wound care in the next 10-14 days. - Time Spent with Patient Total time spent providing and/or coordinating discharge services: Greater than 30 minutes Labs on day of discharge: Preliminary micro results at discharge 02/05/17 20:17 Anaerobic Culture - Preliminary Right Leg At this time, no anaerobic growth is present. The culture will be finalized after 5 days of incubation. - Attending Attestation I examined this patient and my medical decision-making was reviewed with the FINISH[employer] MAP [employer] CHART/PA/Advanced Practice Nurse/Resident Physician. I agree with the documented findings, disposition and treatment plan as described except to the extent set forth below. <Brandon Barker - Last Filed: 02/08/17 16:47> Date of Encounter: 02/08/17 - Discharge Diagnosis (1) Abscess of skin or subcutaneous tissue Status: Acute Qualifiers: Site of cutaneous abscess: extremity Site of cutaneous abscess of extremity : lower extremity Laterality: right Qualified Code(s): L02.415 - Cutaneous abscess of right lower limb (2) Peripheral vascular disease Status: Chronic (3) HTN (hypertension) Status: Chronic Qualifiers: Hypertension type: essential hypertension Qualified Code(s): I10 - Essential (primary) hypertension (4) GERD (gastroesophageal reflux disease) Status: Chronic Qualifiers: Esophagitis presence: esophagitis presence not specified Qualified Code(s) : K21.9 - Gastro-esophageal reflux disease without esophagitis (5) DVT prophylaxis Status: Acute General Surgery Exam Initial Vital Signs Temp Pulse Resp BP Pulse Ox 98 F 100 20 137/59 98 02/04/17 12:55 02/04/17 12:55 02/04/17 12:55 02/04/17 12:55 02/04/17 12:55 Date of admission: 02/05/17 13:45 Primary care physician: Tracy Blackwell MD - Hospital Course Hospital course: Ms. Worley is a 81 year old female - Time Spent with Patient Total time spent providing and/or coordinating discharge services: Labs on day of discharge: Preliminary micro results at discharge 02/05/17 20:17 Anaerobic Culture - Preliminary Right Leg At this time, no anaerobic growth is present. The culture will be finalized after 5 days of incubation. - Attending Attestation The patient is seen and evaluated on morning rounds. Her staph aureus is pansensitive. She can be discharged home with iodoform packing and follow up in wound clinic. I have recommended first-generation cephalosporin. Brandon Barker MD FACS
--- NOTE | 2017-02-08 12:01 | Physician Discharge Referral ---
Home Health/Hosp Referral Info Transfer to: Home Health Attending Provider: Dr. Brandon Barker Provider in Charge Post Discharge: Other (Dr. Brandon Barker and PCP) - Diagnosis (1) Abscess of skin or subcutaneous tissue Priority: Primary Status: Acute (2) Peripheral vascular disease Priority: Secondary Status: Chronic (3) HTN (hypertension) Priority: Secondary Status: Chronic (4) GERD (gastroesophageal reflux disease) Priority: Secondary Status: Chronic - Respiratory Orders None - Dressing/Wound Care Site: Right groin and right medial knee Type of Dressing/Treatments w/Frequency: Wash areas with soap and water in the shower, pack with 1 inch iodoform gauze, cover with 4X4 gauze and ABD pad and tape to secure daily. May change outer dressing more as needed if saturated. - Diet/Nutrition Diet/Nutrition Orders: Regular - Activity Activity Orders: Up ad vinnie, Ambulate - Services Needed Following services are medically necessary services: [facility] Care Orders: Surgical instructions: #1 May shower, no tub bath until released per surgeon #2 Wound care- wash incisions with soap and water in the shower, pack open areas with 1 inch iodoform packing, cover with 4X4 gauze and ABD pad and tape to secure daily #3 No driving until off narcotics for 24 hours and able to safely react in the car #4 May climb stairs - Transfer Medications Prescriptions: OxyCODONE/APAP 5/325 [Percocet 5/325 MG] 1 each PO Q6HR PRN #20 tablet PRN Reason: Pain Sulfamethoxazole/Trimeth DS [Bactrim DS] 1 each PO BID #28 tablet Home Medications: Aspirin [Adult Low Dose Aspirin EC] 81 mg PO DAILY 12/29/15 [History] Atorvastatin Calcium [Lipitor] 20 mg PO DAILY 12/29/15 [History] Cholecalciferol (Vitamin D3) [Vitamin D3] 1,000 unit PO DAILY 12/29/15 [History] Doxazosin [Cardura] 4 mg PO DAILY 12/29/15 [History] Loratadine [Claritin] 10 mg PO DAILY 12/29/15 [History] Omeprazole [PriLOSEC] 40 mg PO BID #60 capsule 04/13/16 [Rx] Amlodipine [Norvasc] 5 mg PO DAILY 02/04/17 [History] Ascorbic Acid [Vitamin C] 250 mg PO DAILY 02/04/17 [History] Cyanocobalamin (Vitamin B-12) [Vitamin B12] 1,000 mcg PO DAILY 02/04/17 [History ] Ferrous Sulfate 325 mg PO DAILY 02/04/17 [History] OxyCODONE/APAP 5/325 [Percocet 5/325 MG] 1 each PO Q6HR PRN #20 tablet 02/08/17 [Rx] Sulfamethoxazole/Trimeth DS [Bactrim DS] 1 each PO BID #28 tablet 02/08/17 [Rx] Allergies/Adverse Reactions: Allergies Penicillins Allergy (Verified 04/12/16 10:04) swelling,vomiting clopidogrel [From Plavix] Adverse Reaction (Verified 04/12/16 10:04) nervousness,itching Certification: Further, I certify that my clinical findings support that this patient is homebound (i.e. absences from home require considerable and taxing effort and are for medical reasons or anabaptism services or infrequently or short duration when for other reasons) because: Homebound Reason: Patient requires assistance of a person or device to safely leave home, Leaving home requires considerable and taxing effort due to condition Attestation: My signature below is to certify that this patient is under my care and that I, or nurse practitioner, or a physician's assistant dean of students working with me, has a face-to -face encounter with this patient.
[2017-02-08] MEDS: *HR* Metoprolol 5 MG/5 ML VIAL IVP PRN (12:35)
[2017-02-08 13:23] VITALS: BP 152/78
== END 2017-02-08 14:15 | disposition home health service (06) | DRG 580 ==
LOC: EMEROO 12:50 → 3ANU 12:50
PROVIDERS: ADMIT Surgery; ATTEND Surgery

== ENCOUNTER 2017-07-11 08:06 | Inpatient (IN) ==
[2017-07-11] MEDS ORDERED: Heparin 1,000 UNITS/500 mL NS 500 ML ONE ×2 (08:15→09:13)
--- NOTE | 2017-07-11 08:39 | Anesthesia Evaluation PreOp ---
Date of Encounter: 07/11/17 Time of Encounter: 08:37 - Past History Planned Operation: L fem access, R fem arteriogram/angioplasty Cardiac History: HTN, Hyperlipidemia, Other (12/06/2015 Stress EF 58% perfusion imaging was negative for ischemia or infarct PAD) Pulmonary History: Former smoker, COPD OIL FIELD CASER History: Denies Any Significant HX Other Medical History: Diabetes Type II, GERD Anesthesia History: No Prior Anesthetic Complications, Past Anesthesia (R Fem- tib graft, removal of infected graft, s/p CEA) Alcohol Use: none Drug use: none Medications and Allergies Aspirin [Adult Low Dose Aspirin EC] 81 mg PO DAILY 12/29/15 [History] Atorvastatin Calcium [Lipitor] 20 mg PO DAILY 12/29/15 [History] Cholecalciferol (Vitamin D3) [Vitamin D3] 1,000 unit PO DAILY 12/29/15 [History] Doxazosin [Cardura] 4 mg PO DAILY 12/29/15 [History] Loratadine [Claritin] 10 mg PO DAILY 12/29/15 [History] amLODIPine [Norvasc] 5 mg PO DAILY 02/04/17 [History] Omeprazole [PriLOSEC] 40 mg PO DAILY 07/11/17 [History] 3 Allergy/AdvReac Type Severity Reaction Status Date / Time Penicillins Allergy swelling,vo Verified 07/11/17 08:26 miting clopidogrel [From Plavix] AdvReac nervousness Verified 07/11/17 08:26 ,itching - Meds/Allergy Pre-op Review Medications Reviewed: Yes Allergies Reviewed: Yes Beta Blockers on Current Med List: No Anesthesia Results - Labs Laboratory Tests 08/17/16 02/05/17 02/06/17 10:27 20:14 05:21 WBC Hgb Hct Plt Count PT INR APTT Sodium Potassium Chloride Carbon Dioxide BUN Creatinine Glucose 217 H POC Glucose 125 H Est Mean Plasma Glucose 117 Hemoglobin A1c 5.7 H 07/02/17 07/02/17 07/02/17 11:07 11:07 11:07 WBC 5.8 Hgb 11.2 L Hct 37.5 Plt Count 194 PT 12.0 INR 1.1 APTT 27.3 Sodium 139 Potassium 4.0 Chloride 105 Carbon Dioxide 24 BUN 14 Creatinine 0.77 Glucose POC Glucose Est Mean Plasma Glucose Hemoglobin A1c - Imaging EKG: report reviewed (SINUS RHYTHM INFERIOR MYOCARDIAL INFARCTION, OF INDETERMINATE AGE Electronically Signed On 07-03-2017 18:28:11 EDT by Maurice Arguelles MD) Anesthesia Exam O2 Sat Height 1.52 m Weight 89.358 kg Height: 1.52 Weight: 89kg NPO (# of Hours): >8 Pain Scale: 0 Pain Scale Used: Numeric (1 - 10) - HEENT Pupil (Motor): Pupils equal, EOMI Mallampati: II Teeth: Poor dentition Oral Opening: Greater than 3 - OIL FIELD CASER LOC: Oriented OIL FIELD CASER Motor: Normal RUE, Normal LUE, Normal RLE, Normal LLE, Normal Face OIL FIELD CASER Sensory: Normal: RUE, LUE, RLE, LLE, Face - Cardiac Rhythm: Regular - Pulmonary Breath Sounds: bilateral Clear Respiratory Effort: Symmetrical Anesthesia Assess/Plan ASA Score: 3 (HTN, DM, PVD, COPD) Modified Avalon Scale for Level of Consciousness: Cooperative, oriented, and tranquil Anesthetic Plan: General (r/b/a d/w pt consent obtained, questions answered, consent obtained) Monitoring Plan: Standard Monitors, A-Line Recovery Plan: PACU
[2017-07-11] MEDS ORDERED: Lidocaine -MPF 1% 2 ML VIAL ID ONE (08:43)
[2017-07-11] MEDS ORDERED: Clindamycin 900 MG/50 ML 900 MG/50 ML IV.SOLN IVPB ONE (08:43)
[2017-07-11] MEDS ORDERED: Plasma-Lyte A (PH 7.4) 1,000 ML IVC SCH (08:45)
[2017-07-11] MEDS ORDERED: CeFAZolin Pre 2,000 MG/100 ML 2,000 MG/100 ML BAG IVPB ONE (08:54)
--- NOTE | 2017-07-11 09:03 | History & Physical Report ---
Date of Encounter: 07/11/17 Time of Encounter: 09:00 24 Hour HP Update - Instructions Instructions: If the History and Physical is less than 30 days old and was completed prior to A.M. admission and or procedure and has NOT been updated on calendar day of procedure please complete this update prior to performing procedure. - Update Patient reports changes in Medical Condition: No Changes in examination, assessment, or condition: No Changes in Medication: No Preop tests/diagnostics Reviewed: Yes Surgery Remains Indicated: Yes Consent for Planned Operative Procedure(s) Verified: Yes - Pre-Operative Checklist Preoperative Checklist Indicated: Yes Prophylactic Antibiotic Ordered: Yes Home Medications Include Beta Phil: No Is VTE Prophylaxis Indicated?: Yes
[2017-07-11] MEDS ORDERED: *HR* Propofol 200 MG/20 ML VIAL IVP ONE (09:07)
[2017-07-11] MEDS ORDERED: *HR* FentaNYL (PF) 100 MCG/2 ML VIAL ONE (09:07)
[2017-07-11] MEDS ORDERED: Lidocaine -MPF 2% 2 ML VIAL ONE ×2 (09:08)
[2017-07-11] MEDS ORDERED: *HR* Succinylcholine 200 MG/10 ML VIAL IVP ONE (09:11)
[2017-07-11] MEDS ORDERED: *HR* Rocuronium Bromide 50 MG/5 ML VIAL ONE (09:11)
[2017-07-11] MEDS ORDERED: Heparin 1,000 UNITS/500 mL NS 1,000 ML ONE (09:19)
[2017-07-11] MEDS ORDERED: *HR* Midazolam HCl 2 MG/2 ML VIAL ONE (09:23)
[2017-07-11] MEDS ORDERED: Dexamethasone 4 MG/ML VIAL ONE (09:23)
[2017-07-11] MEDS ORDERED: *HR* Phenylephrine 10 MG/ML VIAL ONE (09:23)
[2017-07-11] MEDS ORDERED: Acetaminophen IV 0 MG/0 ML INFUS..BTL ONE (10:16)
[2017-07-11] MEDS ORDERED: *HR* Labetalol 20 MG/4 ML SYRINGE IVP PRN (10:21)
[2017-07-11] MEDS ORDERED: *HR* HYDROmorphone (PF) 1 MG/ML SYRINGE IVP PRN (10:21)
[2017-07-11] MEDS ORDERED: Ondansetron 4 MG/2 ML VIAL IVP PRN (10:21)
[2017-07-11] MEDS ORDERED: Neostigmine Methylsulfate 3 MG/3 ML SYRINGE ONE (10:52)
--- NOTE | 2017-07-11 11:08 | Anesthesia Procedures ---
Date of Encounter: 07/11/17 Time of Encounter: 08:40 Procedures: Anesthesia - Arterial Line Consent obtained: written consent Time out performed: Yes Supplemental Oxygen via Nasal Cannula (L/min): 2 (GETA) Size (Gauge): 20 Length (inches): 1 3/4 Technique Used: sterile prep, guide wire technique, direct puncture technique, other (ultrasound guided) Post-Procedure: line taped into place, dry sterile dressing placed Patient tolerated procedure: well, no complications Complications: none Site: Radial L Vitals: Vital Signs/O2 Sat/Glucose, Most Recent Temp Pulse Resp BP Pulse Ox 98.4 F 96 20 144/77 96 07/11/17 09:09 07/11/17 09:09 07/11/17 09:09 07/11/17 09:09 07/11/17 09:09
--- NOTE | 2017-07-11 11:13 | Operative Note ---
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 #2 right femoral arteriogram #3 right balloon angioplasty #4 follow-up right femoral arteriogram Anesthesia: MARY BETHA Surgeon: Brandon Barker Estimated blood loss (cc): 10 Condition: stable Disposition: PACU Procedure in Detail: After informed consent the patient is taken to the major operating suite placed in the supine position and given adequate general anesthetic. The bilateral groins were prepped and draped in sterile fashion utilizing Betadine solution standard draping techniques. Timeout was taken patient was identified and the right leg target bushra was identified. Using fluoroscopy control I cannulated the left common femoral artery with a Seldinger needle. A 6-Ivorian introducer was placed. A guidewire was passed into the aorta. I placed a contra guide catheter. I performed aortic cross over and advanced the guidewire into the profunda femoris on the right side. I then removed the short 6-Ivorian introducer and placed a 6-Ivorian destination introducer into the right common femoral artery. I obtained an arteriogram using 10 mL of 50% strength Isovue. This demonstrated a high-grade stenosis at the anastomosis. The stump of the superficial femoral artery was visible. The in situ vein graft demonstrated no evidence of valve stenosis. There was a stenotic area at the roque of the graft on the common femoral artery. I decided to perform angioplasty. The patient was heparinized with 5000 units of intravenous heparin. I wanted to start with a 4 mm balloon. I changed the wire over to a 0.18 wire and passed this into the saphenous vein graft. I then positioned a 4 mm x 2 cm balloon and performed angioplasty. The balloon was removed and I obtained a post angioplasty arteriogram. There were still some residual stenosis. I changed the 0.18 balloon to a 0.36. I placed a 5 mm x 4 cm balloon and repeated angioplasty. A follow-up arteriogram with 10 mL of 50% strength Isovue demonstrated excellent resolution of the stenosis. I did not feel that further angioplasty would be helpful. There is excellent flow across the previous area of stenosis. The wire and destination introducer were removed and we held direct pressure for 20 minutes then applied pressure dressing. Patient tolerated procedure very well.
--- NOTE | 2017-07-11 11:16 | Discharge Summary ---
Outpatient Proc Discharge Plan - Plan Instructions: Peripheral Vascular Angioplasty (GEN) Prescriptions: OxyCODONE/APAP 10/325 [Percocet 10/325 MG] 1 each PO Q6HR PRN #24 tablet PRN Reason: Pain Home Medications: Aspirin [Adult Low Dose Aspirin EC] 81 mg PO DAILY 12/29/15 [History] Atorvastatin Calcium [Lipitor] 20 mg PO DAILY 12/29/15 [History] Cholecalciferol (Vitamin D3) [Vitamin D3] 1,000 unit PO DAILY 12/29/15 [History] Doxazosin [Cardura] 4 mg PO DAILY 12/29/15 [History] Loratadine [Claritin] 10 mg PO DAILY 12/29/15 [History] amLODIPine [Norvasc] 5 mg PO DAILY 02/04/17 [History] Omeprazole [PriLOSEC] 40 mg PO DAILY 07/11/17 [History] OxyCODONE/APAP 10/325 [Percocet 10/325 MG] 1 each PO Q6HR PRN #24 tablet [Rx]
--- NOTE | 2017-07-11 11:58 | Anesthesia Evaluation Post Op ---
Date of Encounter: 07/11/17 Time of Encounter: 11:57 - Vital Signs Vital Signs: Vital Signs/O2 Sat, Most Current Temp Pulse Resp BP Pulse Ox 98.0 F 81 14 164/73 97 07/11/17 11:47 07/11/17 11:47 07/11/17 11:47 07/11/17 11:47 07/11/17 11:47 - Lungs Lungs: Clear Ascult./Percussion - Airway Airway: Non-obstructed - Cardiovascular Regular Rate - Mental Status Mental Status: Alert & Oriented, Answers Appropriately - Pain Pain Scale: 0 Pain Scale used: Numeric (1 - 10) - Nausea Vomiting Nausea Vomiting: Not Present - Hydration Hydration: Ice chips, Driscoll catheter Notes: 07/11/17 11:57 I have assessed this patient and find they meet discharge criteria. - Discharge PostOp Status: Transfer Patient to floor
[2017-07-11] MEDS ORDERED: 0.9 % Sodium Chloride 1,000 ML IVC SCH (12:30)
[2017-07-11] MEDS ORDERED: *HR* OxyCODONE/APAP 10/325 TABLET PO PRN (12:30)
[2017-07-11 18:10] VITALS: BP 157/61
[2017-07-12] MEDS ORDERED: amLODIPine 5 MG TABLET PO SCH (09:00)
[2017-07-12] MEDS ORDERED: Loratadine 10 MG TABLET PO SCH (09:00)
[2017-07-12] MEDS ORDERED: Aspirin Enteric Coated 81 MG Tablet PO SCH (09:00)
== END 2017-07-11 18:56 | disposition home or self-care (01) | DRG 254 ==
LOC: SAMDAY 08:06 → 2NNU 11:56
PROVIDERS: ADMIT Surgery; ATTEND Surgery

== ENCOUNTER 2019-10-22 18:59 | Inpatient (IN) ==
[2019-10-22 21:07] LABS: INR 1.2; Prothrombin Time 13.9 Seconds (9.4-12.1)
[2019-10-22] MEDS ORDERED: Pantoprazole 40 MG VIAL IVP ONE (22:10)
[2019-10-23] MEDS ORDERED: 0.9 % Sodium Chloride 1,000 ML IVC SCH (01:30)
[2019-10-23] MEDS ORDERED: 0.9 % Sodium Chloride 250 ML ONE (01:49)
[2019-10-23 02:47] LABS: Mean Corpuscular Hemoglobin 22.3 pg (28.0-33.3)
[2019-10-23 02:48] LABS: Basophils % 0.7 %; Eosinophils # 0.1 K/mcL (0.0-0.6); Eosinophils % 1.9 %; Hematocrit 25.2 % (35.3-44.9); Hemoglobin 7.1 g/dL (11.5-15.4); Immature Granulocytes % 0.5 % (0-4); Lymphocytes # 0.6 K/mcL (0.6-4.6); Lymphocytes % 12.7 %; Mean Corpuscular HGB Conc 28.2 g/dL (31.6-35.5); Mean Corpuscular Volume 79.2 fL (83.0-100.0); Mean Platelet Volume 10.8 fL (9.4-12.4); Monocytes # 0.3 K/mcL (0.0-1.3); Neutrophils # 3.3 K/mcL (1.6-8.9); Platelet Count 168 K/mcL (140-400); Red Blood Count 3.18 M/mcL (3.82-4.97); Red Cell Distribution Width 16.6 % (11.5-14.5); Segmented Neutrophils % 76.2 %; White Blood Count 4.3 K/mcL (4.3-11.1)
[2019-10-23 03:05] LABS: % Iron Saturation 4 % (15-50); Alanine Aminotransferase 9 Units/L (7-52); Albumin 3.6 g/dL (3.5-5.7); Albumin/Globulin Ratio 1.3 (1.1-2.2); Alkaline Phosphatase 60 Units/L (34-104); Aspartate Amino Transferase 13 Units/L (13-39); BUN/Creatinine Ratio 21 (6-26); Bilirubin,Direct 0.2 mg/dL (0.0-0.2); Bilirubin,Indirect 0.3 mg/dL (0.0-1.0); Bilirubin,Total 0.5 mg/dL (0.3-1.0); Blood Urea Nitrogen 15 mg/dL (8-23); Calcium 8.7 mg/dL (8.6-10.3); Carbon Dioxide 23 mEq/L (23-29); Chloride 105 mEq/L (98-107); Globulin 2.8 g/dL (2.4-3.5); Glucose 133 mg/dL (70-105); Iron 17 mcg/dL (50-170); Osmolality,Calculated 287 (280-300); Potassium 4.1 mEq/L (3.5-5.1); Sodium 137 mEq/L (136-145); Total Protein 6.4 g/dL (6.4-8.9); Transferrin 311 mg/dL (203-362); eGFR For African Americans > 60 (> 60); eGFR For Non-African Americans > 60 (> 60)
[2019-10-23 03:26] LABS: Ferritin < 8 ng/mL (10-120)
[2019-10-23 04:22] LABS: Anisocytosis 1+ (Not Present); Hypochromasia Present (Not Present); Microcytosis Present (Not Present); Platelet Estimate Normal (Normal); Poikilocytosis 1+ (Not Present)
[2019-10-23 04:23] LABS: Ovalocytes 1+ (Not Present)
[2019-10-23] MEDS ORDERED: Pantoprazole 40 MG VIAL IVP SCH (06:00)
[2019-10-23 12:31] LABS: Hematocrit 29.3 % (35.3-44.9); Mean Corpuscular Hemoglobin 23.2 pg (28.0-33.3); Mean Corpuscular Volume 77.3 fL (83.0-100.0); Mean Platelet Volume 10.9 fL (9.4-12.4); Platelet Count 182 K/mcL (140-400); Red Blood Count 3.79 M/mcL (3.82-4.97); Red Cell Distribution Width 16.6 % (11.5-14.5); White Blood Count 5.1 K/mcL (4.3-11.1)
[2019-10-23 12:39] LABS: Hemoglobin 8.8 g/dL (11.5-15.4)
[2019-10-23] MEDS: Furosemide 40 MG/4 ML VIAL IVP SCH ×2 (13:13→17:51)
[2019-10-23] MEDS: Lisinopril 20 MG TABLET PO SCH (13:14)
[2019-10-23] MEDS: Iron Sucrose Complex 400 MG in 0.9 % Sodium Chloride 250 ML IVPB SCH (15:03)
[2019-10-23] MEDS ORDERED: Perflutren Lipid Microsphere 1.3 ML in 0.9 % Sodium Chloride 8.7 ML IVP ONE ×2 (15:05→21:36)
[2019-10-23] MEDS: Metoprolol 100 MG TABLET PO SCH (21:36)
[2019-10-24 02:48] LABS: Hematocrit 30.5 % (35.3-44.9)
[2019-10-24 02:49] LABS: Mean Corpuscular HGB Conc 29.5 g/dL (31.6-35.5); Mean Corpuscular Volume 77.8 fL (83.0-100.0); Mean Platelet Volume 10.8 fL (9.4-12.4); Platelet Count 199 K/mcL (140-400); Red Blood Count 3.92 M/mcL (3.82-4.97); Red Cell Distribution Width 16.9 % (11.5-14.5); White Blood Count 5.2 K/mcL (4.3-11.1)
[2019-10-24 03:06] LABS: BUN/Creatinine Ratio 16 (6-26); Blood Urea Nitrogen 13 mg/dL (8-23); Calcium 8.7 mg/dL (8.6-10.3); Carbon Dioxide 28 mEq/L (23-29); Chloride 101 mEq/L (98-107); Glucose 106 mg/dL (70-105); Osmolality,Calculated 289 (280-300); Potassium 3.5 mEq/L (3.5-5.1); Sodium 139 mEq/L (136-145); eGFR For African Americans > 60 (> 60); eGFR For Non-African Americans > 60 (> 60)
[2019-10-24 07:40] LABS: Bilirubin,Urine Small (Negative); Blood,Urine Negative (Negative); Clarity,Urine Clear (Clear); Color,Urine Dark Yellow (Yellow); Glucose,Urine (UA) Normal (Normal); Ketones,Urine Negative (Negative); Leukocyte Esterase,Urine Small (Negative); Nitrite,Urine Negative (Negative); PH,Urine 6.5 pH Units (5.0-8.0); Protein,Urine Negative (Neg-Trace); Specific Gravity,Urine 1.023 (1.010-1.025); Urobilinogen,Urine Normal (Normal)
[2019-10-24 07:45] LABS: Bacteria,Urine None Seen per hpf (None-Few); Hyaline Casts,Urine None Seen per lpf (None-Few); RBC,Urine 0-3 per hpf (0-3); Squamous Epithelial Cell,Urine Many per lpf (None-Few)
[2019-10-24] MEDS: Metoprolol 100 MG TABLET PO SCH ×2 (09:00→20:26)
[2019-10-24] MEDS: Lisinopril 20 MG TABLET PO SCH (09:00)
[2019-10-24] MEDS: Furosemide 40 MG/4 ML VIAL IVP SCH ×2 (09:00→16:48)
[2019-10-24] MEDS: Iron Sucrose Complex 400 MG in 0.9 % Sodium Chloride 250 ML IVPB SCH (13:42)
[2019-10-25 07:27] LABS: Hematocrit 31.7 % (35.3-44.9); Hemoglobin 9.5 g/dL (11.5-15.4); Mean Corpuscular Hemoglobin 23.4 pg (28.0-33.3); Mean Corpuscular Volume 78.1 fL (83.0-100.0); Mean Platelet Volume 10.6 fL (9.4-12.4); Platelet Count 214 K/mcL (140-400); Red Blood Count 4.06 M/mcL (3.82-4.97); Red Cell Distribution Width 17.4 % (11.5-14.5); White Blood Count 5.7 K/mcL (4.3-11.1)
[2019-10-25 07:38] VITALS: BP 146/72
[2019-10-25 07:46] LABS: BUN/Creatinine Ratio 20 (6-26); Blood Urea Nitrogen 18 mg/dL (8-23); Calcium 8.8 mg/dL (8.6-10.3); Carbon Dioxide 29 mEq/L (23-29); Chloride 100 mEq/L (98-107); Glucose 103 mg/dL (70-105); Osmolality,Calculated 290 (280-300); Potassium 3.4 mEq/L (3.5-5.1); Sodium 139 mEq/L (136-145); eGFR For African Americans > 60 (> 60); eGFR For Non-African Americans > 60 (> 60)
[2019-10-25] MEDS: Furosemide 40 MG/4 ML VIAL IVP SCH (07:55)
[2019-10-25] MEDS: Metoprolol 100 MG TABLET PO SCH (07:56)
[2019-10-25] MEDS: Lisinopril 20 MG TABLET PO SCH (07:56)
== END 2019-10-25 11:05 | disposition home or self-care (01) | DRG 291 ==
LOC: EMEROOARM 18:59 → 3ANU 18:59
PROVIDERS: ADMIT Student in an Organized Health Care Education/Training Program; ATTEND Student in an Organized Health Care Education/Training Program

== ENCOUNTER 2020-10-12 13:28 | Observation (INO) ==
[2020-10-12 14:08] LABS: Red Cell Distribution Width 16.3 % (11.5-14.5)
[2020-10-12 14:09] LABS: Basophils % 0.7 %; Eosinophils # 0.1 K/mcL (0.0-0.6); Eosinophils % 2.4 %; Immature Granulocytes % 0.5 % (0-4); Lymphocytes # 0.4 K/mcL (0.6-4.6); Mean Corpuscular Hemoglobin 24.1 pg (28.0-33.3); Mean Corpuscular Volume 85.9 fL (83.0-100.0); Mean Platelet Volume 11.4 fL (9.4-12.4); Monocytes # 0.3 K/mcL (0.0-1.3); Monocytes % 8.3 %; Neutrophils # 3.2 K/mcL (1.6-8.9); Platelet Count 179 K/mcL (140-400); Red Blood Count 2.91 M/mcL (3.82-4.97); Segmented Neutrophils % 79.1 %; White Blood Count 4.1 K/mcL (4.3-11.1)
[2020-10-12 14:12] LABS: Anisocytosis 1+ (Not Present); Hypochromasia Present (Not Present); Platelet Estimate Normal (Normal)
[2020-10-12 14:24] LABS: BUN/Creatinine Ratio 22 (6-26); Blood Urea Nitrogen 16 mg/dL (8-23); Calcium 8.5 mg/dL (8.6-10.3); Carbon Dioxide 22 mEq/L (23-29); Chloride 106 mEq/L (98-107); Glucose 148 mg/dL (70-105); Osmolality,Calculated 290 (280-300); Potassium 4.1 mEq/L (3.5-5.1); Sodium 138 mEq/L (136-145); Troponin I < 0.03 ng/mL (< 0.04); eGFR For African Americans > 60 (> 60); eGFR For Non-African Americans > 60 (> 60)
[2020-10-12] MEDS ORDERED: Ondansetron 4 MG/2 ML VIAL IVP PRN (17:19)
[2020-10-12] MEDS ORDERED: Naloxone 0.4 MG/ML INJ IVP PRN (17:19)
[2020-10-12] MEDS ORDERED: Perflutren Lipid Microsphere 1.3 ML in 0.9 % Sodium Chloride 8.7 ML IVP PRN (17:22)
[2020-10-12 17:31] LABS: INR 1.2; Prothrombin Time 13.8 Seconds (9.4-12.1)
[2020-10-12] MEDS ORDERED: Nitroglycerin 0.4 MG TAB.SUBL SL STA (17:33)
[2020-10-12] MEDS ORDERED: Furosemide 40 MG/4 ML VIAL IVP ONE (17:33)
[2020-10-12] MEDS ORDERED: 0.9 % Sodium Chloride 250 ML ONE (21:10)
[2020-10-13 06:54] LABS: Red Cell Distribution Width 16.2 % (11.5-14.5)
[2020-10-13 06:56] LABS: Eosinophils # 0.2 K/mcL (0.0-0.6); Hematocrit 25.1 % (35.3-44.9); Hemoglobin 7.4 g/dL (11.5-15.4); Lymphocytes # 0.6 K/mcL (0.6-4.6); Mean Corpuscular HGB Conc 29.5 g/dL (31.6-35.5); Mean Corpuscular Volume 84.8 fL (83.0-100.0); Mean Platelet Volume 11.4 fL (9.4-12.4); Platelet Count 180 K/mcL (140-400); Red Blood Count 2.96 M/mcL (3.82-4.97)
[2020-10-13 07:35] LABS: BUN/Creatinine Ratio 24 (6-26); Blood Urea Nitrogen 19 mg/dL (8-23); Calcium 8.5 mg/dL (8.6-10.3); Carbon Dioxide 27 mEq/L (23-29); Chloride 105 mEq/L (98-107); Glucose 110 mg/dL (70-105); Magnesium 2.1 mg/dL (1.6-2.6); Osmolality,Calculated 289 (280-300); Phosphorous 3.6 mg/dL (2.7-4.5); Potassium 3.7 mEq/L (3.5-5.1); Sodium 138 mEq/L (136-145); eGFR For African Americans > 60 (> 60); eGFR For Non-African Americans > 60 (> 60)
[2020-10-13 07:50] LABS: Thyroid Stimulating Hormone 0.956 mcIU/mL (0.340-5.600)
[2020-10-13 08:00] LABS: Folate 15.5 ng/mL (3.0-16.0)
[2020-10-13] MEDS: Furosemide 40 MG/4 ML VIAL IVP SCH ×2 (08:35→20:08)
[2020-10-13] MEDS: Loratadine 10 MG TABLET PO SCH (08:36)
[2020-10-13] MEDS: Aspirin Enteric Coated 81 MG Tablet PO SCH (08:36)
[2020-10-13] MEDS: lisinopriL 20 MG TABLET PO SCH (08:37)
[2020-10-13] MEDS: Simethicone 80 MG TAB.CHEW PO PRN (10:29)
[2020-10-13 11:49] LABS: Anisocytosis 1+ (Not Present); Hypochromasia Present (Not Present); Monocytes # 0.6 K/mcL (0.0-1.3); Neutrophils # 2.6 K/mcL (1.6-8.9); Platelet Estimate Normal (Normal); Poikilocytosis 1+ (Not Present)
[2020-10-13] MEDS ORDERED: Cyanocobalamin (B-12) 1,000 MCG/ML VIAL IM ONE (15:40)
[2020-10-13] MEDS ORDERED: FERUMOXYTOL IVPB ONE (15:51)
[2020-10-13] MEDS ORDERED: SODIUM CHLORIDE 0.9% IVPB ONE (15:51)
[2020-10-14] MEDS: Simethicone 80 MG TAB.CHEW PO PRN (02:43)
[2020-10-14 05:17] LABS: Basophils % 0.6 %; Eosinophils # 0.2 K/mcL (0.0-0.6); Eosinophils % 4.3 %; Hematocrit 26.5 % (35.3-44.9); Hemoglobin 7.9 g/dL (11.5-15.4); Immature Granulocytes % 0.4 % (0-4); Lymphocytes # 0.7 K/mcL (0.6-4.6); Lymphocytes % 14.2 %; Mean Corpuscular HGB Conc 29.8 g/dL (31.6-35.5); Mean Corpuscular Hemoglobin 25.4 pg (28.0-33.3); Mean Corpuscular Volume 85.2 fL (83.0-100.0); Monocytes # 0.5 K/mcL (0.0-1.3); Monocytes % 9.9 %; Neutrophils # 3.3 K/mcL (1.6-8.9); Platelet Count 188 K/mcL (140-400); Red Blood Count 3.11 M/mcL (3.82-4.97); Red Cell Distribution Width 16.4 % (11.5-14.5); Segmented Neutrophils % 70.6 %; White Blood Count 4.6 K/mcL (4.3-11.1)
[2020-10-14 05:41] LABS: BUN/Creatinine Ratio 24 (6-26); Blood Urea Nitrogen 21 mg/dL (8-23); Calcium 8.7 mg/dL (8.6-10.3); Carbon Dioxide 28 mEq/L (23-29); Chloride 102 mEq/L (98-107); Glucose 104 mg/dL (70-105); Magnesium 2.2 mg/dL (1.6-2.6); Osmolality,Calculated 289 (280-300); Potassium 3.3 mEq/L (3.5-5.1); Sodium 138 mEq/L (136-145); eGFR For African Americans > 60 (> 60); eGFR For Non-African Americans > 60 (> 60)
[2020-10-14] MEDS ORDERED: Furosemide 40 MG/4 ML VIAL IVP SCH (06:00)
[2020-10-14] MEDS ORDERED: Cyanocobalamin (B-12) 1,000 MCG TABLET PO SCH (09:00)
[2020-10-14] MEDS: Aspirin Enteric Coated 81 MG Tablet PO SCH (09:11)
[2020-10-14] MEDS: lisinopriL 20 MG TABLET PO SCH (09:11)
[2020-10-14] MEDS: Loratadine 10 MG TABLET PO SCH (09:11)
[2020-10-14 11:18] VITALS: BP 113/73
== END 2020-10-14 16:05 | disposition home or self-care (01) ==
LOC: EMEROOARM 13:28 → 2ANU 13:28 → SUATTDRO 17:48 → 2ANU 18:45
PROVIDERS: ADMIT Internal Medicine; ATTEND Internal Medicine

== ENCOUNTER 2021-01-03 07:01 | Inpatient (IN) ==
[2021-01-03] MEDS ORDERED: methylPREDNISolone 125 MG/2 ML VIAL IVP ONE (07:08)
[2021-01-03] MEDS ORDERED: Ipratropium/Albuterol Neb 3 ML IH ONE (07:08)
[2021-01-03] MEDS ORDERED: Ondansetron 4 MG/2 ML VIAL IVP ONE (07:13)
[2021-01-03] MEDS ORDERED: Ondansetron 4 MG/2 ML VIAL ONE (07:14)
[2021-01-03 07:28] LABS: Basophils # 0.1 K/mcL (0.0-0.2); Basophils % 0.6 %; Eosinophils # 0.2 K/mcL (0.0-0.6); Eosinophils % 2.5 %; Hematocrit 31.2 % (35.3-44.9); Hemoglobin 9.1 g/dL (11.5-15.4); Immature Granulocytes % 0.5 % (0-4); Lymphocytes # 1.5 K/mcL (0.6-4.6); Lymphocytes % 15.6 %; Mean Corpuscular HGB Conc 29.2 g/dL (31.6-35.5); Mean Corpuscular Hemoglobin 25.7 pg (28.0-33.3); Mean Corpuscular Volume 88.1 fL (83.0-100.0); Mean Platelet Volume 10.6 fL (9.4-12.4); Monocytes # 0.6 K/mcL (0.0-1.3); Monocytes % 6.8 %; Neutrophils # 6.9 K/mcL (1.6-8.9); Platelet Count 290 K/mcL (140-400); Red Blood Count 3.54 M/mcL (3.82-4.97); Red Cell Distribution Width 15.9 % (11.5-14.5); White Blood Count 9.4 K/mcL (4.3-11.1)
[2021-01-03] MEDS ORDERED: Furosemide 40 MG/4 ML VIAL IVP ONE (07:28)
[2021-01-03 07:48] LABS: Alanine Aminotransferase 8 Units/L (7-52); Albumin 3.4 g/dL (3.5-5.7); Alkaline Phosphatase 63 Units/L (34-104); Aspartate Amino Transferase 13 Units/L (13-39); BUN/Creatinine Ratio 23 (6-26); Bilirubin,Direct 0.1 mg/dL (0.0-0.2); Bilirubin,Indirect 0.4 mg/dL (0.0-1.0); Bilirubin,Total 0.5 mg/dL (0.3-1.0); Blood Urea Nitrogen 17 mg/dL (8-23); Calcium 8.8 mg/dL (8.6-10.3); Carbon Dioxide 23 mEq/L (23-29); Chloride 107 mEq/L (98-107); Globulin 3.4 g/dL (2.4-3.5); Glucose 232 mg/dL (70-105); Osmolality,Calculated 299 (280-300); Potassium 3.9 mEq/L (3.5-5.1); Sodium 140 mEq/L (136-145); Total Protein 6.8 g/dL (6.4-8.9); Troponin I 0.03 ng/mL (< 0.04); eGFR For African Americans > 60 (> 60); eGFR For Non-African Americans > 60 (> 60)
[2021-01-03 08:19] LABS: Adenovirus Not Detected (Not Detect); Bordetella Pertussis Not Detected (Not Detect); Chlamydophila pneumoniae Not Detected (Not Detect); Coronavirus 229E Not Detected (Not Detect); Coronavirus HKU1 Not Detected (Not Detect); Coronavirus NL63 Not Detected (Not Detect); Coronavirus OC43 Not Detected (Not Detect); Human Metapneumovirus Not Detected (Not Detect); Human Rhinovirus/Enterovirus Not Detected (Not Detect); Influenza A Subtype 2009 H1 Not Detected (Not Detect); Influenza B Not Detected (Not Detect); Mycoplasma pneumoniae Not Detected (Not Detect); Parainfluenza Virus 1 Not Detected (Not Detect); Parainfluenza Virus 2 Not Detected (Not Detect); Parainfluenza Virus 3 Not Detected (Not Detect); Parainfluenza Virus 4 Not Detected (Not Detect); Respiratory Syncytial Virus Not Detected (Not Detect)
[2021-01-03 08:22] LABS: SARS-CoV-2 DETECTED (Not Detect)
[2021-01-03] MEDS ORDERED: Dexamethasone 4 MG/ML VIAL IVP ONE (08:22)
[2021-01-03] MEDS ORDERED: Ondansetron 4 MG/2 ML VIAL IVP PRN (08:47)
[2021-01-03] MEDS ORDERED: Naloxone 0.4 MG/ML INJ IVP PRN (08:47)
[2021-01-03 09:05] LABS: ABG Base Excess 0 mEq/L (-2 to 3); ABG HCO3 25 mEq/L (21-27); ABG Oxygen Saturation 94 % (95-98); ABG PCO2 37 mmHg (35-45); ABG PH 7.43 pH Units (7.32-7.45); ABG PO2 68 mmHg (85-104); ABG TCO2 26 mEq/L (20-26)
[2021-01-03] MEDS ORDERED: *HR* Dextrose 50 % in Water (Vial) 50 ML VIAL IVP PRN (09:24)
[2021-01-03] MEDS ORDERED: Dextrose Gel 15 GM/37.5 ML TUBE PO PRN ×2 (09:24)
[2021-01-03] MEDS ORDERED: D5% in Water 1,000 ML IVC PRN (09:24)
[2021-01-03 09:26] LABS: Phosphorous 4.1 mg/dL (2.7-4.5)
[2021-01-03 09:30] LABS: INR 1.2; Prothrombin Time 13.9 Seconds (9.4-12.1)
[2021-01-03 09:32] LABS: Activated Partial Thrombo Time 27.3 Seconds (26.0-36.0)
[2021-01-03] MEDS ORDERED: Azithromycin 500 MG in 0.9 % Sodium Chloride 250 ML IVPB SCH (10:00)
[2021-01-03] MEDS ORDERED: Insulin LISPRO 300 UNITS/3 ML VIAL SUBQ SCH ×2 (12:00→21:00)
[2021-01-03] MEDS ORDERED: CefTRIAXone 1,000 MG VIAL ONE (12:14)
[2021-01-03] MEDS: cefTRIAXone 1,000 MG in Water for inj. (sterile) 10 ML IVP SCH (12:25)
[2021-01-03] MEDS: Ipratropium 1 PUFF INHALER IH SCH ×4 (12:26→23:06)
[2021-01-03 13:04] LABS: Estimated Average Glucose 103 mg/dl; Hemoglobin A1C 5.2 %
[2021-01-03] MEDS ORDERED: Isovue-370 500 ML BOTTLE IVP ONE (14:08)
[2021-01-03] MEDS ORDERED: Perflutren Lipid Microsphere 1.3 ML in 0.9 % Sodium Chloride 8.7 ML IVP PRN (14:09)
[2021-01-03] MEDS ORDERED: *HR* Heparin 5,000 UNIT/ML VIAL IVP PRN ×2 (16:43)
[2021-01-03] MEDS ORDERED: *HR* Heparin 5,000 UNIT/ML VIAL IVP ONE (16:43)
[2021-01-03] MEDS: Insulin LISPRO 300 UNITS/3 ML VIAL SUBQ SCH (17:04)
[2021-01-03 17:24] LABS: Hematocrit 28.3 % (35.3-44.9); Hemoglobin 8.4 g/dL (11.5-15.4); Mean Corpuscular HGB Conc 29.7 g/dL (31.6-35.5); Mean Corpuscular Hemoglobin 25.8 pg (28.0-33.3); Mean Corpuscular Volume 87.1 fL (83.0-100.0); Mean Platelet Volume 11.2 fL (9.4-12.4); Platelet Count 214 K/mcL (140-400); Red Blood Count 3.25 M/mcL (3.82-4.97); Red Cell Distribution Width 15.8 % (11.5-14.5)
[2021-01-03 17:32] LABS: INR 1.2; Prothrombin Time 13.9 Seconds (9.4-12.1); White Blood Count 3.7 K/mcL (4.3-11.1)
[2021-01-03 17:33] LABS: Heparin anti-factor XA UFH < 0.04 IU/mL (0.30-0.70)
[2021-01-03] MEDS: Heparin 25,000UNIT/250ML 1/2NS 25,000 UNIT/250 ML IV.SOLN IVC SCH (17:45)
[2021-01-03] MEDS: Furosemide 40 MG/4 ML VIAL IVP SCH (21:56)
[2021-01-04 00:35] LABS: Basophils % 0.2 %; Hematocrit 26.5 % (35.3-44.9); Immature Granulocytes % 0.2 % (0-4); Lymphocytes # 0.5 K/mcL (0.6-4.6); Lymphocytes % 9.2 %; Mean Corpuscular HGB Conc 30.2 g/dL (31.6-35.5); Mean Corpuscular Hemoglobin 25.6 pg (28.0-33.3); Mean Corpuscular Volume 84.9 fL (83.0-100.0); Mean Platelet Volume 10.9 fL (9.4-12.4); Monocytes # 0.3 K/mcL (0.0-1.3); Monocytes % 4.9 %; Platelet Count 222 K/mcL (140-400); Red Blood Count 3.12 M/mcL (3.82-4.97); Red Cell Distribution Width 15.9 % (11.5-14.5); Segmented Neutrophils % 85.5 %
[2021-01-04 00:39] LABS: White Blood Count 5.9 K/mcL (4.3-11.1)
[2021-01-04 00:42] LABS: BUN/Creatinine Ratio 28 (6-26); Blood Urea Nitrogen 19 mg/dL (8-23); Calcium 8.4 mg/dL (8.6-10.3); Carbon Dioxide 26 mEq/L (23-29); Chloride 101 mEq/L (98-107); Glucose 151 mg/dL (70-105); Osmolality,Calculated 289 (280-300); Potassium 3.4 mEq/L (3.5-5.1); Sodium 137 mEq/L (136-145); eGFR For African Americans > 60 (> 60); eGFR For Non-African Americans > 60 (> 60)
[2021-01-04 02:12] LABS: Bilirubin,Urine Negative (Negative); Blood,Urine Negative (Negative); Clarity,Urine Clear (Clear); Color,Urine Colorless (Yellow); Glucose,Urine (UA) Normal (Normal); Ketones,Urine Negative (Negative); Leukocyte Esterase,Urine Negative (Negative); Nitrite,Urine Negative (Negative); PH,Urine 6.5 pH Units (5.0-8.0); Protein,Urine Negative (Neg-Trace); Specific Gravity,Urine 1.012 (1.010-1.025); Urobilinogen,Urine Normal (Normal)
[2021-01-04] MEDS: Ipratropium 1 PUFF INHALER IH SCH ×6 (04:23→22:59)
[2021-01-04] MEDS ORDERED: *HR* Enoxaparin 40 MG/0.4 ML SYRINGE SQ SCH (06:00)
[2021-01-04] MEDS: Insulin LISPRO 300 UNITS/3 ML VIAL SUBQ SCH ×3 (07:32→16:43)
[2021-01-04] MEDS: Loratadine 10 MG TABLET PO SCH (07:50)
[2021-01-04] MEDS: Aspirin Enteric Coated 81 MG Tablet PO SCH (07:50)
[2021-01-04] MEDS: Cholecalciferol (D-3) 1,000 UNIT (25MCG) TABLET PO SCH (07:50)
[2021-01-04] MEDS: Furosemide 40 MG/4 ML VIAL IVP SCH (07:52)
[2021-01-04] MEDS ORDERED: Azithromycin 250 MG TABLET PO SCH (09:00)
[2021-01-04] MEDS ORDERED: Dexamethasone Sodium Phos/PF 10 MG/ML VIAL IVP SCH (09:00)
[2021-01-04] MEDS: cefTRIAXone 1,000 MG in Water for inj. (sterile) 10 ML IVP SCH (11:25)
[2021-01-04] MEDS: Heparin 25,000UNIT/250ML 1/2NS 25,000 UNIT/250 ML IV.SOLN IVC SCH (17:34)
[2021-01-04] MEDS: Furosemide 20 MG/2 ML VIAL IVP SCH (17:35)
[2021-01-05] MEDS: Ipratropium 1 PUFF INHALER IH SCH ×6 (04:20→23:47)
[2021-01-05 05:25] LABS: Hematocrit 27.2 % (35.3-44.9); Hemoglobin 8.1 g/dL (11.5-15.4); Mean Corpuscular HGB Conc 29.8 g/dL (31.6-35.5); Mean Corpuscular Volume 87.5 fL (83.0-100.0); Mean Platelet Volume 11.2 fL (9.4-12.4); Platelet Count 177 K/mcL (140-400); Red Blood Count 3.11 M/mcL (3.82-4.97); Red Cell Distribution Width 16.1 % (11.5-14.5); White Blood Count 5.7 K/mcL (4.3-11.1)
[2021-01-05 05:43] LABS: BUN/Creatinine Ratio 35 (6-26); Blood Urea Nitrogen 24 mg/dL (8-23); Calcium 8.7 mg/dL (8.6-10.3); Carbon Dioxide 26 mEq/L (23-29); Chloride 101 mEq/L (98-107); Glucose 122 mg/dL (70-105); Magnesium 2.4 mg/dL (1.6-2.6); Osmolality,Calculated 287 (280-300); Potassium 3.9 mEq/L (3.5-5.1); Sodium 136 mEq/L (136-145); eGFR For African Americans > 60 (> 60); eGFR For Non-African Americans > 60 (> 60)
[2021-01-05] MEDS: Dexamethasone Sodium Phos/PF 10 MG/ML VIAL IVP SCH (07:57)
[2021-01-05] MEDS: Furosemide 20 MG/2 ML VIAL IVP SCH (07:58)
[2021-01-05] MEDS: Aspirin Enteric Coated 81 MG Tablet PO SCH (07:58)
[2021-01-05] MEDS: Loratadine 10 MG TABLET PO SCH (07:58)
[2021-01-05] MEDS: Cholecalciferol (D-3) 1,000 UNIT (25MCG) TABLET PO SCH (07:58)
[2021-01-05] MEDS ORDERED: *HR* Enoxaparin 40 MG/0.4 ML SYRINGE SQ ONE (10:30)
[2021-01-05 11:19] LABS: Troponin I 0.13 ng/mL (< 0.04)
[2021-01-05] MEDS: lisinopriL 20 MG TABLET PO SCH (16:33)
[2021-01-05] MEDS: Furosemide 40 MG TABLET PO SCH (16:33)
[2021-01-06] MEDS: Ipratropium 1 PUFF INHALER IH SCH ×2 (03:58→07:21)
[2021-01-06] MEDS ORDERED: *HR* Enoxaparin 40 MG/0.4 ML SYRINGE SQ SCH (06:00)
[2021-01-06 07:09] VITALS: BP 154/70
[2021-01-06] MEDS ORDERED: Ferumoxytol 510 MG in 0.9 % Sodium Chloride 100 ML IVPB ONE (07:16)
[2021-01-06] MEDS: Furosemide 40 MG TABLET PO SCH (07:49)
[2021-01-06] MEDS: Cholecalciferol (D-3) 1,000 UNIT (25MCG) TABLET PO SCH (07:49)
[2021-01-06] MEDS: Aspirin Enteric Coated 81 MG Tablet PO SCH (07:49)
[2021-01-06] MEDS: Loratadine 10 MG TABLET PO SCH (07:49)
[2021-01-06] MEDS: lisinopriL 20 MG TABLET PO SCH (07:49)
[2021-01-06] MEDS: Dexamethasone Sodium Phos/PF 10 MG/ML VIAL IVP SCH (07:50)
== END 2021-01-06 11:17 | disposition home or self-care (01) | DRG 871 ==
LOC: 2NENU 07:01 → EMEROOARM 07:01 → SUATTDRO 09:13 → 2NENU 09:58
PROVIDERS: ADMIT General Practice; ATTEND Internal Medicine

== ENCOUNTER 2021-02-25 11:59 | Inpatient (IN) ==
[2021-02-25 12:33] LABS: Basophils % 0.5 %; Eosinophils % 1.4 %; Immature Granulocytes % 0.5 % (0-4); Lymphocytes % 10.6 %
[2021-02-25 12:35] LABS: Eosinophils # 0.1 K/mcL (0.0-0.6); Hematocrit 19.7 % (35.3-44.9); Lymphocytes # 0.5 K/mcL (0.6-4.6); Mean Corpuscular HGB Conc 28.4 g/dL (31.6-35.5); Mean Corpuscular Hemoglobin 24.5 pg (28.0-33.3); Mean Platelet Volume 12.6 fL (9.4-12.4); Monocytes # 0.3 K/mcL (0.0-1.3); Monocytes % 7.8 %; Neutrophils # 3.4 K/mcL (1.6-8.9); Platelet Count 141 K/mcL (140-400); Red Blood Count 2.29 M/mcL (3.82-4.97); Red Cell Distribution Width 16.4 % (11.5-14.5); Segmented Neutrophils % 79.2 %; White Blood Count 4.3 K/mcL (4.3-11.1)
[2021-02-25] MEDS ORDERED: Furosemide 40 MG/4 ML VIAL IVP STA (12:38)
[2021-02-25 12:41] LABS: INR 1.2; Prothrombin Time 13.8 Seconds (9.4-12.1)
[2021-02-25 12:44] LABS: Activated Partial Thrombo Time 24.6 Seconds (26.0-36.0)
[2021-02-25 12:54] LABS: Alanine Aminotransferase 10 Units/L (7-52); Albumin 3.4 g/dL (3.5-5.7); Albumin/Globulin Ratio 1.4 (1.1-2.2); Alkaline Phosphatase 52 Units/L (34-104); Aspartate Amino Transferase 17 Units/L (13-39); BUN/Creatinine Ratio 27 (6-26); Bilirubin,Direct 0.1 mg/dL (0.0-0.2); Bilirubin,Indirect 0.3 mg/dL (0.0-1.0); Bilirubin,Total 0.4 mg/dL (0.3-1.0); Blood Urea Nitrogen 23 mg/dL (8-23); Calcium 8.5 mg/dL (8.6-10.3); Carbon Dioxide 19 mEq/L (23-29); Chloride 104 mEq/L (98-107); Creatine Kinase 114 Units/L (30-223); Globulin 2.5 g/dL (2.4-3.5); Glucose 119 mg/dL (70-105); Osmolality,Calculated 285 (280-300); Potassium 4.2 mEq/L (3.5-5.1); Sodium 135 mEq/L (136-145); Total Protein 5.9 g/dL (6.4-8.9); Troponin I 1.03 ng/mL (< 0.04); eGFR For African Americans > 60 (> 60); eGFR For Non-African Americans > 60 (> 60)
[2021-02-25 12:55] LABS: Hemoglobin 5.6 g/dL (11.5-15.4)
[2021-02-25 12:58] LABS: Platelet Estimate Normal (Normal)
[2021-02-25 12:59] LABS: Anisocytosis 1+ (Not Present); Hypochromasia Present (Not Present)
[2021-02-25 13:03] LABS: Bilirubin,Urine Negative (Negative); Blood,Urine Negative (Negative); Clarity,Urine Clear (Clear); Color,Urine Yellow (Yellow); Glucose,Urine (UA) Normal (Normal); Ketones,Urine Negative (Negative); Leukocyte Esterase,Urine Negative (Negative); Nitrite,Urine Negative (Negative); Protein,Urine Trace mg/dL (Neg-Trace); Specific Gravity,Urine 1.021 (1.010-1.025); Urobilinogen,Urine Normal (Normal)
[2021-02-25] MEDS ORDERED: Pantoprazole 40 MG VIAL IVP ONE (13:31)
[2021-02-25] MEDS: Albumin 25% 25gram/100mL 25 GM/100 ML IV.SOLN IVC SCH ×2 (14:30→17:51)
[2021-02-25] MEDS ORDERED: Acetaminophen 325 MG TABLET PO PRN (15:27)
[2021-02-25] MEDS ORDERED: Melatonin 3 MG TABLET PO PRN (15:27)
[2021-02-25] MEDS ORDERED: Albumin 25% 25gram/100mL 25 GM/100 ML IV.SOLN IVC SCH (18:00)
[2021-02-25] MEDS ORDERED: 0.9 % Sodium Chloride 250 ML ONE (20:06)
[2021-02-25] MEDS ORDERED: Furosemide 20 MG/2 ML VIAL IVP SCH (21:00)
[2021-02-25] MEDS ORDERED: Furosemide 20 MG/2 ML VIAL IVP ONE (23:15)
[2021-02-25] MEDS: Ondansetron 4 MG/2 ML VIAL IVP PRN (23:33)
[2021-02-26] MEDS ORDERED: 0.9 % Sodium Chloride 250 ML ONE ×2 (01:46→09:50)
[2021-02-26 03:04] LABS: Hematocrit 23.3 % (35.3-44.9); Hemoglobin 6.9 g/dL (11.5-15.4); Mean Corpuscular HGB Conc 29.6 g/dL (31.6-35.5); Mean Corpuscular Hemoglobin 25.5 pg (28.0-33.3); Mean Platelet Volume 12.3 fL (9.4-12.4); Platelet Count 132 K/mcL (140-400); Red Blood Count 2.71 M/mcL (3.82-4.97); Red Cell Distribution Width 15.9 % (11.5-14.5); White Blood Count 5.8 K/mcL (4.3-11.1)
[2021-02-26 03:20] LABS: BUN/Creatinine Ratio 28 (6-26); Blood Urea Nitrogen 27 mg/dL (8-23); Calcium 8.6 mg/dL (8.6-10.3); Carbon Dioxide 24 mEq/L (23-29); Chloride 102 mEq/L (98-107); Glucose 145 mg/dL (70-105); Osmolality,Calculated 288 (280-300); Potassium 4.2 mEq/L (3.5-5.1); Sodium 135 mEq/L (136-145); eGFR For African Americans > 60 (> 60); eGFR For Non-African Americans 56 (> 60)
[2021-02-26] MEDS ORDERED: 0.9 % Sodium Chloride 250 ML IVC SCH (08:15)
[2021-02-26] MEDS ORDERED: Furosemide 20 MG/2 ML VIAL IVP ONE (08:17)
[2021-02-26] MEDS: Aspirin Enteric Coated 81 MG Tablet PO SCH (08:21)
[2021-02-26] MEDS: Furosemide 20 MG/2 ML VIAL IVP SCH ×2 (08:21→16:45)
[2021-02-26] MEDS: lisinopriL 20 MG TABLET PO SCH (08:21)
[2021-02-26] MEDS: Ondansetron 4 MG/2 ML VIAL IVP PRN (08:24)
[2021-02-26 08:59] LABS: Hematocrit 24.4 % (35.3-44.9); Hemoglobin 7.4 g/dL (11.5-15.4)
[2021-02-26 14:58] LABS: Hematocrit 27.5 % (35.3-44.9); Hemoglobin 8.3 g/dL (11.5-15.4)
[2021-02-26 20:10] LABS: Hematocrit 26.2 % (35.3-44.9); Hemoglobin 8.2 g/dL (11.5-15.4)
[2021-02-27 09:07] LABS: Hematocrit 27.3 % (35.3-44.9); Hemoglobin 8.4 g/dL (11.5-15.4); Mean Corpuscular HGB Conc 30.8 g/dL (31.6-35.5); Mean Corpuscular Hemoglobin 26.3 pg (28.0-33.3); Mean Corpuscular Volume 85.3 fL (83.0-100.0); Mean Platelet Volume 12.5 fL (9.4-12.4); Platelet Count 132 K/mcL (140-400); Red Cell Distribution Width 16.7 % (11.5-14.5); White Blood Count 4.8 K/mcL (4.3-11.1)
[2021-02-27 09:18] LABS: Calcium 8.3 mg/dL (8.6-10.3); Potassium 3.8 mEq/L (3.5-5.1)
[2021-02-27] MEDS: lisinopriL 20 MG TABLET PO SCH (10:02)
[2021-02-27] MEDS: Furosemide 20 MG/2 ML VIAL IVP SCH (10:02)
[2021-02-27] MEDS: Aspirin Enteric Coated 81 MG Tablet PO SCH (10:03)
[2021-02-27 10:50] VITALS: BP 121/57
== END 2021-02-27 16:04 | disposition home or self-care (01) | DRG 811 ==
LOC: 2NENU 11:59 → EMEROOARM 11:59 → SUATTDRO 14:12 → 2NENU 15:10
PROVIDERS: ADMIT Internal Medicine; ATTEND Family Medicine

== ENCOUNTER 2021-04-10 14:22 | Inpatient (IN) ==
[2021-04-10 15:46] LABS: Red Cell Distribution Width 17.4 % (11.5-14.5)
[2021-04-10 15:47] LABS: Basophils % 0.7 %; Eosinophils % 0.5 %; Immature Granulocytes % 0.2 % (0-4); Lymphocytes # 0.4 K/mcL (0.6-4.6); Lymphocytes % 8.2 %; Mean Corpuscular HGB Conc 27.9 g/dL (31.6-35.5); Mean Corpuscular Hemoglobin 22.7 pg (28.0-33.3); Mean Corpuscular Volume 81.5 fL (83.0-100.0); Mean Platelet Volume 12.2 fL (9.4-12.4); Monocytes # 0.3 K/mcL (0.0-1.3); Monocytes % 5.9 %; Neutrophils # 3.7 K/mcL (1.6-8.9); Platelet Count 147 K/mcL (140-400); Red Blood Count 2.33 M/mcL (3.82-4.97); Segmented Neutrophils % 84.5 %; White Blood Count 4.4 K/mcL (4.3-11.1)
[2021-04-10 16:07] LABS: BUN/Creatinine Ratio 31 (6-26); Blood Urea Nitrogen 28 mg/dL (8-23); Calcium 8.7 mg/dL (8.6-10.3); Carbon Dioxide 23 mEq/L (23-29); Chloride 104 mEq/L (98-107); Glucose 109 mg/dL (70-105); Osmolality,Calculated 294 (280-300); Potassium 4.3 mEq/L (3.5-5.1); Sodium 139 mEq/L (136-145); eGFR For African Americans > 60 (> 60); eGFR For Non-African Americans > 60 (> 60)
[2021-04-10 16:14] LABS: Hemoglobin 5.3 g/dL (11.5-15.4); Hypochromasia Present (Not Present)
[2021-04-10] MEDS: DilTIAZem 50 MG/50 ML IV.SOLN IVC SCH (16:21)
[2021-04-10] MEDS ORDERED: Furosemide 40 MG in 0.9 % Sodium Chloride 50 ML IVPB ONE (16:40)
[2021-04-10] MEDS ORDERED: Furosemide 40 MG/4 ML VIAL IVP ONE (16:45)
[2021-04-10 17:28] LABS: Adenovirus Not Detected (Not Detect); Bordetella Pertussis Not Detected (Not Detect); Chlamydophila pneumoniae Not Detected (Not Detect); Coronavirus 229E Not Detected (Not Detect); Coronavirus HKU1 Not Detected (Not Detect); Coronavirus NL63 Not Detected (Not Detect); Coronavirus OC43 Not Detected (Not Detect); Human Metapneumovirus Not Detected (Not Detect); Human Rhinovirus/Enterovirus Not Detected (Not Detect); Influenza A Subtype 2009 H1 Not Detected (Not Detect); Influenza B Not Detected (Not Detect); Mycoplasma pneumoniae Not Detected (Not Detect); Parainfluenza Virus 1 Not Detected (Not Detect); Parainfluenza Virus 2 Not Detected (Not Detect); Parainfluenza Virus 3 Not Detected (Not Detect); Parainfluenza Virus 4 Not Detected (Not Detect); Respiratory Syncytial Virus Not Detected (Not Detect); SARS-CoV-2 Not Detected (Not Detect)
[2021-04-10] MEDS ORDERED: Naloxone 0.4 MG/ML INJ IVP PRN (17:41)
[2021-04-10] MEDS ORDERED: Melatonin 3 MG TABLET PO PRN (17:41)
[2021-04-10] MEDS ORDERED: Acetaminophen 325 MG TABLET PO PRN (17:41)
[2021-04-10] MEDS ORDERED: Mag Hydrox/Al Hydrox/Simeth 30 ML UDC PO PRN (17:41)
[2021-04-10] MEDS ORDERED: Ondansetron ODT 4 MG TAB.RAPDIS SL PRN (17:41)
[2021-04-10] MEDS ORDERED: *HR* Dextrose 50 % in Water (Vial) 50 ML VIAL IVP PRN (18:24)
[2021-04-10] MEDS ORDERED: D5% in Water 1,000 ML IVC PRN (18:24)
[2021-04-10] MEDS ORDERED: Dextrose Gel 15 GM/37.5 ML TUBE PO PRN ×2 (18:24)
[2021-04-10] MEDS ORDERED: Perflutren Lipid Microsphere 1.3 ML in 0.9 % Sodium Chloride 8.7 ML IVP PRN (18:29)
[2021-04-10 18:31] LABS: Bilirubin,Urine Negative (Negative); Blood,Urine Negative (Negative); Clarity,Urine Clear (Clear); Color,Urine Light-Yellow (Yellow); Glucose,Urine (UA) Normal (Normal); Ketones,Urine Negative (Negative); Leukocyte Esterase,Urine Negative (Negative); Nitrite,Urine Negative (Negative); PH,Urine 5.5 pH Units (5.0-8.0); Protein,Urine Negative (Neg-Trace); Specific Gravity,Urine 1.011 (1.010-1.025); Urobilinogen,Urine Normal (Normal)
[2021-04-10] MEDS ORDERED: *HR* Digoxin 0.5 MG/2 ML AMPUL IVP ONE (18:55)
[2021-04-10] MEDS ORDERED: 0.9 % Sodium Chloride 250 ML ONE (20:19)
[2021-04-10] MEDS: Furosemide 40 MG/4 ML VIAL IVP SCH (23:38)
[2021-04-10] MEDS: Insulin LISPRO 300 UNITS/3 ML VIAL SUBQ SCH (23:47)
[2021-04-11] MEDS: *HR* Digoxin 0.5 MG/2 ML AMPUL IVP SCH ×3 (00:36→12:18)
[2021-04-11 01:58] LABS: Hematocrit 21.5 % (35.3-44.9); Hemoglobin 6.1 g/dL (11.5-15.4); Mean Corpuscular HGB Conc 28.4 g/dL (31.6-35.5); Mean Corpuscular Hemoglobin 23.6 pg (28.0-33.3); Mean Corpuscular Volume 83.3 fL (83.0-100.0); Mean Platelet Volume 13.2 fL (9.4-12.4); Red Blood Count 2.58 M/mcL (3.82-4.97); Red Cell Distribution Width 17.5 % (11.5-14.5); White Blood Count 5.3 K/mcL (4.3-11.1)
[2021-04-11 02:00] LABS: Immature Platelets 11.1 % (1.1-6.1)
[2021-04-11 02:07] LABS: BUN/Creatinine Ratio 28 (6-26); Blood Urea Nitrogen 28 mg/dL (8-23); Calcium 8.6 mg/dL (8.6-10.3); Carbon Dioxide 25 mEq/L (23-29); Chloride 106 mEq/L (98-107); Glucose 145 mg/dL (70-105); Osmolality,Calculated 296 (280-300); Potassium 4.6 mEq/L (3.5-5.1); Sodium 139 mEq/L (136-145); eGFR For African Americans > 60 (> 60); eGFR For Non-African Americans 54 (> 60)
[2021-04-11 02:10] LABS: Troponin I 0.29 ng/mL (< 0.04)
[2021-04-11] MEDS ORDERED: 0.9 % Sodium Chloride 250 ML ONE (02:55)
[2021-04-11] MEDS: Pantoprazole 40 MG VIAL IVP SCH ×2 (06:36→17:19)
[2021-04-11] MEDS ORDERED: Ipratropium/Albuterol Neb 3 ML ONE (07:38)
[2021-04-11] MEDS: Furosemide 40 MG/4 ML VIAL IVP SCH ×2 (07:46→20:52)
[2021-04-11 07:53] LABS: ABG Base Excess 1 mEq/L (-2 to 3); ABG HCO3 26 mEq/L (21-27); ABG Oxygen Saturation 100 % (95-98); ABG PCO2 39 mmHg (35-45); ABG PH 7.43 pH Units (7.32-7.45); ABG PO2 164 mmHg (85-104); ABG TCO2 27 mEq/L (20-26)
[2021-04-11] MEDS: Insulin LISPRO 300 UNITS/3 ML VIAL SUBQ SCH ×4 (07:53→20:50)
[2021-04-11 07:59] LABS: Hematocrit 25.1 % (35.3-44.9)
[2021-04-11 08:00] LABS: Hemoglobin 7.7 g/dL (11.5-15.4)
[2021-04-11] MEDS ORDERED: Ipratropium/Albuterol Neb 3 ML IH ONE (08:16)
[2021-04-11] MEDS: Loratadine 10 MG TABLET PO SCH (09:07)
[2021-04-11] MEDS: lisinopriL 20 MG TABLET PO SCH (09:07)
[2021-04-11] MEDS: DilTIAZem 50 MG/50 ML IV.SOLN IVC SCH (16:16)
[2021-04-11 16:17] LABS: Hematocrit 27.1 % (35.3-44.9); Hemoglobin 8.2 g/dL (11.5-15.4)
[2021-04-11 21:28] LABS: Hematocrit 26.6 % (35.3-44.9); Hemoglobin 7.9 g/dL (11.5-15.4)
[2021-04-12] MEDS: Pantoprazole 40 MG VIAL IVP SCH ×2 (06:15→17:15)
[2021-04-12 07:39] LABS: Hematocrit 25.1 % (35.3-44.9); Hemoglobin 7.6 g/dL (11.5-15.4); Mean Corpuscular HGB Conc 30.3 g/dL (31.6-35.5); Mean Corpuscular Hemoglobin 25.2 pg (28.0-33.3); Mean Corpuscular Volume 83.1 fL (83.0-100.0); Mean Platelet Volume 12.1 fL (9.4-12.4); Platelet Count 149 K/mcL (140-400); Red Blood Count 3.02 M/mcL (3.82-4.97); Red Cell Distribution Width 17.5 % (11.5-14.5); White Blood Count 4.5 K/mcL (4.3-11.1)
[2021-04-12] MEDS: lisinopriL 20 MG TABLET PO SCH (07:40)
[2021-04-12] MEDS: Insulin LISPRO 300 UNITS/3 ML VIAL SUBQ SCH ×4 (07:40→20:02)
[2021-04-12] MEDS: Loratadine 10 MG TABLET PO SCH (07:40)
[2021-04-12] MEDS: Furosemide 40 MG/4 ML VIAL IVP SCH (07:40)
[2021-04-12 08:04] LABS: Alanine Aminotransferase 7 Units/L (7-52); Albumin 3.4 g/dL (3.5-5.7); Albumin/Globulin Ratio 1.3 (1.1-2.2); Alkaline Phosphatase 54 Units/L (34-104); Aspartate Amino Transferase 13 Units/L (13-39); BUN/Creatinine Ratio 27 (6-26); Bilirubin,Total 0.9 mg/dL (0.3-1.0); Blood Urea Nitrogen 25 mg/dL (8-23); Calcium 8.4 mg/dL (8.6-10.3); Carbon Dioxide 28 mEq/L (23-29); Chloride 101 mEq/L (98-107); Globulin 2.7 g/dL (2.4-3.5); Glucose 99 mg/dL (70-105); Osmolality,Calculated 288 (280-300); Potassium 3.8 mEq/L (3.5-5.1); Sodium 137 mEq/L (136-145); Total Protein 6.1 g/dL (6.4-8.9); eGFR For African Americans > 60 (> 60); eGFR For Non-African Americans 59 (> 60)
[2021-04-12] MEDS: Furosemide 40 MG TABLET PO SCH (17:15)
[2021-04-13] MEDS: Pantoprazole 40 MG VIAL IVP SCH ×2 (05:02→17:43)
[2021-04-13 06:35] LABS: Immature Granulocytes % 0.2 % (0-4)
[2021-04-13 06:36] LABS: Basophils % 0.6 %; Eosinophils # 0.3 K/mcL (0.0-0.6); Eosinophils % 6.1 %; Hematocrit 27.2 % (35.3-44.9); Hemoglobin 7.9 g/dL (11.5-15.4); Immature Platelets 5.7 % (1.1-6.1); Lymphocytes # 0.6 K/mcL (0.6-4.6); Lymphocytes % 12.7 %; Mean Corpuscular Hemoglobin 24.4 pg (28.0-33.3); Mean Platelet Volume 12.6 fL (9.4-12.4); Monocytes # 0.4 K/mcL (0.0-1.3); Monocytes % 8.7 %; Neutrophils # 3.4 K/mcL (1.6-8.9); Nucleated Red Blood Cells 0.4 /100 WBC (0); Platelet Count 146 K/mcL (140-400); Red Blood Count 3.24 M/mcL (3.82-4.97); Red Cell Distribution Width 18.1 % (11.5-14.5); Segmented Neutrophils % 71.7 %; White Blood Count 4.7 K/mcL (4.3-11.1)
[2021-04-13] MEDS: Furosemide 40 MG TABLET PO SCH ×2 (08:11→17:43)
[2021-04-13] MEDS: Loratadine 10 MG TABLET PO SCH (08:11)
[2021-04-13] MEDS: lisinopriL 20 MG TABLET PO SCH (08:11)
[2021-04-13] MEDS: Insulin LISPRO 300 UNITS/3 ML VIAL SUBQ SCH (08:12)
[2021-04-13] MEDS ORDERED: *HR* Metoprolol 5 MG/5 ML VIAL IVP ONE (08:47)
[2021-04-13] MEDS ORDERED: DilTIAZem CD (24hr) 180 MG CAP.ER.24H PO SCH (09:00)
[2021-04-14] MEDS: Pantoprazole 40 MG VIAL IVP SCH (05:14)
[2021-04-14] MEDS ORDERED: Aspirin Enteric Coated 81 MG Tablet PO SCH (09:00)
[2021-04-14] MEDS: Loratadine 10 MG TABLET PO SCH (09:46)
[2021-04-14] MEDS: Furosemide 40 MG TABLET PO SCH (09:46)
[2021-04-14 12:14] VITALS: BP 121/74
[2021-04-14] MEDS: lisinopriL 20 MG TABLET PO SCH (12:14)
== END 2021-04-14 12:40 | disposition home or self-care (01) | DRG 280 ==
LOC: EMEROOARM 14:22 → 2NENU 14:22 → SUATTDRO 19:32
PROVIDERS: ADMIT Family Medicine; ATTEND Internal Medicine

== ENCOUNTER 2022-04-06 11:12 | Observation (INO) ==
[2022-04-06 11:55] LABS: Basophils % 0.4 %
[2022-04-06 11:56] LABS: Eosinophils # 0.1 K/mcL (0.0-0.6); Eosinophils % 2.8 %; Hematocrit 20.9 % (35.3-44.9); Immature Granulocytes % 0.4 % (0-4); Lymphocytes # 0.5 K/mcL (0.6-4.6); Lymphocytes % 10.3 %; Mean Corpuscular HGB Conc 28.2 g/dL (31.6-35.5); Mean Corpuscular Hemoglobin 23.4 pg (28.0-33.3); Mean Corpuscular Volume 82.9 fL (83.0-100.0); Monocytes # 0.4 K/mcL (0.0-1.3); Platelet Count 207 K/mcL (140-400); Red Blood Count 2.52 M/mcL (3.82-4.97); Segmented Neutrophils % 78.1 %; White Blood Count 4.7 K/mcL (4.3-11.1)
[2022-04-06 12:10] LABS: Neutrophils # 3.7 K/mcL (1.6-8.9)
[2022-04-06 12:13] LABS: Hemoglobin 5.9 g/dL (11.5-15.4)
[2022-04-06 12:17] LABS: Calcium 7.9 mg/dL (8.6-10.3); Potassium 3.9 mEq/L (3.5-5.1)
[2022-04-06 12:35] LABS: Troponin I 0.22 ng/mL (< 0.04)
[2022-04-06 12:41] LABS: Hypochromasia Present (Not Present); Platelet Estimate Normal (Normal)
[2022-04-06] MEDS ORDERED: Ondansetron 4 MG/2 ML VIAL IVP PRN (13:13)
[2022-04-06] MEDS ORDERED: Naloxone 0.4 MG/ML INJ IVP PRN (13:13)
[2022-04-06] MEDS ORDERED: Acetaminophen 325 MG TABLET PO PRN (13:13)
[2022-04-06] MEDS ORDERED: 0.9 % Sodium Chloride 250 ML ONE (14:58)
[2022-04-06 15:25] VITALS: O2SAT 100
[2022-04-06] MEDS ORDERED: Furosemide 20 MG/2 ML VIAL IVP ONE ×2 (15:26→17:00)
[2022-04-06] MEDS ORDERED: Furosemide 40 MG TABLET PO SCH (17:00)
[2022-04-06 20:55] LABS: Hematocrit 23.6 % (35.3-44.9); Hemoglobin 6.8 g/dL (11.5-15.4)
[2022-04-07 02:26] LABS: Hematocrit 21.9 % (35.3-44.9); Hemoglobin 6.4 g/dL (11.5-15.4); Mean Corpuscular HGB Conc 29.2 g/dL (31.6-35.5); Mean Corpuscular Hemoglobin 24.2 pg (28.0-33.3); Mean Platelet Volume 10.9 fL (9.4-12.4); Platelet Count 188 K/mcL (140-400); Red Blood Count 2.64 M/mcL (3.82-4.97); Red Cell Distribution Width 16.5 % (11.5-14.5)
[2022-04-07 02:54] LABS: Calcium 8.5 mg/dL (8.6-10.3); Magnesium 2.4 mg/dL (1.6-2.6); Potassium 4.3 mEq/L (3.5-5.1)
[2022-04-07] MEDS ORDERED: 0.9 % Sodium Chloride 250 ML ONE (05:52)
[2022-04-07] MEDS ORDERED: Furosemide 40 MG TABLET PO SCH (08:00)
[2022-04-07] MEDS ORDERED: Loratadine 10 MG TABLET PO SCH (09:00)
[2022-04-07] MEDS ORDERED: lisinopriL 20 MG TABLET PO SCH (09:00)
[2022-04-07] MEDS ORDERED: Aspirin Enteric Coated 81 MG Tablet PO SCH (09:00)
[2022-04-07] MEDS ORDERED: Cholecalciferol (D-3) 1,000 UNIT (25MCG) TABLET PO SCH (09:00)
[2022-04-07 10:51] LABS: Hematocrit 25.7 % (35.3-44.9); Hemoglobin 7.7 g/dL (11.5-15.4)
[2022-04-07 11:29] VITALS: BP 126/57; PULSE 78; TEMP 98.2
== END 2022-04-07 15:20 | disposition home or self-care (01) ==
LOC: 2NENU 11:12 → EMEROOARM 11:12 → SUATTDRO 14:11 → 2NENU 14:49
PROVIDERS: ADMIT General Practice; ATTEND Internal Medicine

== ENCOUNTER 2022-06-24 15:27 | Observation (INO) ==
[2022-06-24 16:15] LABS: Basophils % 0.5 %; Eosinophils % 1.8 %; Mean Platelet Volume 11.3 fL (9.4-12.4); Platelet Count 250 K/mcL (140-400)
[2022-06-24 16:16] LABS: Eosinophils # 0.1 K/mcL (0.0-0.6); Hematocrit 20.6 % (35.3-44.9); Immature Granulocytes % 0.5 % (0-4); Lymphocytes # 0.6 K/mcL (0.6-4.6); Lymphocytes % 9.9 %; Mean Corpuscular HGB Conc 28.2 g/dL (31.6-35.5); Mean Corpuscular Hemoglobin 22.7 pg (28.0-33.3); Mean Corpuscular Volume 80.8 fL (83.0-100.0); Monocytes # 0.7 K/mcL (0.0-1.3); Monocytes % 11.6 %; Neutrophils # 4.5 K/mcL (1.6-8.9); Nucleated Red Blood Cells 0.3 /100 WBC (0); Red Blood Count 2.55 M/mcL (3.82-4.97); Red Cell Distribution Width 17.5 % (11.5-14.5); Segmented Neutrophils % 75.7 %
[2022-06-24 16:34] LABS: Hemoglobin 5.8 g/dL (11.5-15.4)
[2022-06-24 16:37] LABS: Calcium 8.7 mg/dL (8.6-10.3); Potassium 4.4 mEq/L (3.5-5.1)
[2022-06-24 16:44] LABS: Troponin I 0.05 ng/mL (< 0.04)
[2022-06-24 16:46] LABS: Hypochromasia Present (Not Present)
[2022-06-24] MEDS ORDERED: Furosemide 20 MG/2 ML VIAL IVP ONE (17:25)
[2022-06-24] MEDS ORDERED: Ondansetron 4 MG/2 ML VIAL IVP PRN (17:25)
[2022-06-24] MEDS ORDERED: Melatonin 3 MG TABLET PO PRN (17:25)
[2022-06-24] MEDS ORDERED: Naloxone 0.4 MG/ML INJ IVP PRN (17:25)
[2022-06-24] MEDS ORDERED: 0.9 % Sodium Chloride 250 ML IVC SCH (17:30)
[2022-06-25] MEDS ORDERED: *HR* Metoprolol 5 MG/5 ML VIAL IVP ONE ×3 (02:27→02:41)
[2022-06-25 03:32] LABS: Hematocrit 26.7 % (35.3-44.9); Immature Granulocytes % 0.7 % (0-4); Mean Corpuscular Volume 82.2 fL (83.0-100.0); Mean Platelet Volume 11.4 fL (9.4-12.4); Red Blood Count 3.25 M/mcL (3.82-4.97); Red Cell Distribution Width 17.1 % (11.5-14.5)
[2022-06-25 03:33] LABS: Hemoglobin 7.6 g/dL (11.5-15.4); Mean Corpuscular HGB Conc 28.5 g/dL (31.6-35.5); Mean Corpuscular Hemoglobin 23.4 pg (28.0-33.3); Platelet Count 268 K/mcL (140-400); Segmented Neutrophils % 75.4 %; White Blood Count 7.6 K/mcL (4.3-11.1)
[2022-06-25 03:34] LABS: Basophils % 0.5 %; Eosinophils # 0.3 K/mcL (0.0-0.6); Eosinophils % 3.3 %; Lymphocytes # 0.7 K/mcL (0.6-4.6); Monocytes # 0.8 K/mcL (0.0-1.3); Monocytes % 11.1 %; Neutrophils # 5.7 K/mcL (1.6-8.9)
[2022-06-25 03:48] LABS: Calcium 8.8 mg/dL (8.6-10.3); Magnesium 2.2 mg/dL (1.6-2.6); Potassium 4.4 mEq/L (3.5-5.1)
[2022-06-25 04:03] LABS: Anisocytosis 1+ (Not Present); Platelet Estimate Normal (Normal)
[2022-06-25 05:44] VITALS: O2SAT 100
[2022-06-25 06:52] VITALS: BP 135/67; TEMP 98.6
[2022-06-25 07:54] LABS: Hematocrit 27.3 % (35.3-44.9); Hemoglobin 8.2 g/dL (11.5-15.4)
[2022-06-25 11:08] VITALS: PULSE 86
== END 2022-06-25 12:05 | disposition home or self-care (01) ==
LOC: EMEROOARM 15:27 → 2NNU 15:27
PROVIDERS: ADMIT Internal Medicine; ATTEND Internal Medicine